=== PATIENT | female | born 1980 | race Caucasian/White ===

== ENCOUNTER 2021-03-19 14:40 | Inpatient (IN) ==
[2021-03-19] MEDS ORDERED: ONDANSETRON INJ 2 MG/ML 2 ML VIAL IV PRN (15:34)
[2021-03-19] MEDS ORDERED: POLYETHYLENE (MIRALAX) 17 GM PACK PO PRN (15:34)
[2021-03-19 20:59] LABS: Basophils # (auto) 0.01 K/uL (0-0.2); Basophils % (auto) 0.1 %; Eosinophils # (auto) 0.03 K/uL (0-0.5); Eosinophils % (auto) 0.2 %; Hematocrit (blood only) 30.9 % (37-47); Hemoglobin 10.2 g/dL (12.0-16.0); Immature Granulocytes # (auto) 0.04 K/uL (0.00-0.02); Immature Granulocytes % (auto) 0.3 %; Lymphocytes # (auto) 1.69 K/uL (1.2-3.4); Lymphocytes % (auto) 12.6 %; Mean Corpuscular Hemoglobin 28.9 pg (25-34); Mean Corpuscular Volume 87.5 fL (80-100); Mean Platelet Volume 9.1 fL (7.4-10.4); Monocytes # (auto) 1.16 K/uL (0.11-0.59); Monocytes % (auto) 8.7 %; Neutrophils # (auto) 10.45 K/uL (1.4-6.5); Neutrophils % (auto) 78.1 %; Platelet Count 395 K/uL (130-400); RDW Coefficient of Variation 14.4 % (11.5-14.5); RDW Standard Deviation 46.4 fL (36.4-46.3); Red Blood Count 3.53 M/uL (4.2-5.4); White Blood Count 13.38 K/uL (4.8-10.8)
[2021-03-19 21:16] LABS: Alanine Aminotransferase 30 U/L (12-78); Albumin Level 2.9 gm/dl (3.4-5.0); Aspartate Aminotransferase 14 U/L (15-37); BUN Creatinine Ratio 17.2 (10-20); Blood Urea Nitrogen 11 mg/dl (7-18); Calcium 8.5 mg/dl (8.5-10.1); Carbon Dioxide 25 mmol/L (21-32); Chloride 102 mmol/L (98-107); Est GFR (African American) 126.3 ml/min; Glucose 98 mg/dl (70-99); Potassium 3.6 mmol/L (3.5-5.1); Sodium 135 mmol/L (136-145)
[2021-03-19 21:20] LABS: Partial Thromboplastin Time 27.1 Seconds (21.0-31.0)
[2021-03-19 21:21] LABS: Albumin Globulin Ratio 0.6 (0.9-2); Alkaline Phosphatase 58 U/L (45-117); Bilirubin,Total 0.2 mg/dl (0.2-1); Globulin 4.5 gm/dl (2.5-4.0); Total Protein 7.4 gm/dl (6.4-8.2); Troponin I < 0.015 ng/ml (0-0.045)
[2021-03-19 21:27] LABS: Magnesium 2.3 mg/dl (1.8-2.4); Thyroid Stimulating Hormone 2.73 uIu/ml (0.300-4.500)
--- NOTE | 2021-03-19 22:14 | History & Physical Report ---
Date of Service March 19, 2021 Assessment & Plan (1) Pericardial effusion: Plan: Need to rule out autoimmune, infectious etiology given low-grade fever Anemia, possibly dilutional after [facility] ER stay. Hypothyroidism, off medications for years now., TSH within normal limits PCU CS Cardiology consult Re: Pericardial effusion Patient already evaluated by Dr. Edwards. He recommends colchicine along with Rheumatology consultation. Anemia work-up, transfuse PRBC if hemoglobin less than 7 and or for symptomatic anemia DVT prophylaxis. SCDs Re: Possible intervention Full code Text document was generated using [employer] voice recognition software. It may contain grammatical or spelling errors. Kindly contact undersigned for clarification of any documentation item in question. Admission and Anticipated Discharge Date Admission Date: March 19, 2021 History of Present Illness Chief Complaint: Pericardial effusion Primary Care Provider: Sheila Swan PA-C History obtained from patient and records. Medical history significant for hypothyroidism currently not on medications. Patient has been experiencing intermittent achy chest pain going to shoulders and neck for about 5 years now. Occurring about 5 times a year with spontaneous resolution. Outpatient TTE and Holter monitor unremarkable. The last 2 weeks, patient noted fever, chills, night sweats. Worsening chest pain with tachycardia episodes. Outpatient COVID-19 test was negative. Some stress at home. Patient seen at local [facility]. T wave inversions noted in the inferior leads along with PVCs. Patient subsequently directed to [facility]. CT chest showed No pulmonary embolism.No focal consolidation/pneumonia.Findings of anasarca, i ncluding pericardial effusion. TTE : EF 55 to 59%, no LV segmental wall motion abnormality. Moderate size 5 to 10 mm circumferential pericardial effusion noted. Fibrin stranding noted within pericardial effusion. Overt signs of tamponade are absent. Lyme screen was negative. Troponin was negative. JOVAN screen was negative CRP elevated at 140. Rheumatoid factor was noted to be slightly elevated at 18. Patient given IV Decadron at the ER which significantly relieve chest discomfort. Initial plan to transfer patient to [facility] for Cardiology services. Patient later accepted as a direct admission at [facility] due to prolonged [facility] bed wait. Patient currently comfortable at PCU room. Complains of minimal epigastric discomfort. Patient denies black/bloody stools. 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 Allergies Allergy/AdvReac Type Severity Reaction Status Date / Time Sulfa (Sulfonamide Allergy Unknown HIVES, rash Verified 03/09/21 20:50 Antibiotics) Home Medications Medication Instructions Recorded Confirmed Type selenium 200 mcg capsule 200 mcg PO DAILY 03/19/21 03/19/21 History tizanidine 4 mg capsule 4 mg PO TID 03/19/21 03/19/21 History valacyclovir 500 mg tablet 500 mg PO BID PRN 03/19/21 03/19/21 History Past Med/Surg History Medical History No pertinent family history No pertinent past medical history Surgical History No pertinent past surgical history Social History Smoking Status: Never smoker Hx Alcohol Use: Yes Alcohol type: wine Hx Substance Use: No Preferred Language: Argentine Communication Ability: Effective 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 Current Living Situation: Spouse and Family Other Information That Helps Us Care for You: No Feels Safe at Home: Yes Safety Concerns: Feels Safe At This Time Assistive Devices: None Review of Systems Review of Systems: As per HPI, all 10 systems reviewed, all other ROS negative Physical Exam Physical Exam: GENERAL: Comfortable, pleasant, no respiratory distress SKIN: Normal color, warm HEENT: Bespectacled, [place] palpebral conjunctivae, no ptosis, moist buccal mucosa NECK : Supple, no tenderness CHEST : CTA, no tenderness HEART : RRR, no obvious murmurs ABDOMEN: Some distention, nontender EXTREMITIES : No LE swelling/tenderness, no other conspicuous deformities noted NEUROLOGIC : Coherent, no facial asymmetry, no other gross focality Results & Data Results & Data ([facility]) Vital Signs (Past 12 Hours) Vital Signs Temp Pulse Resp BP Pulse Ox 03/19/21 21:19 37.6 C H 75 22 122/71 98 Laboratory Results Laboratory Results WBC 13.38 K/uL (4.8-10.8) H 03/19/21 20:46 RBC 3.53 M/uL (4.2-5.4) L 03/19/21 20:46 Hgb 10.2 g/dL (12.0-16.0) L 03/19/21 20:46 Hct 30.9 % (37-47) L 03/19/21 20:46 MCV 87.5 fL (80-100) 03/19/21 20:46 MCH 28.9 pg (25-34) 03/19/21 20:46 MCHC 33.0 g/dL (32-36) 03/19/21 20:46 RDW Std Deviation 46.4 fL (36.4-46.3) H 03/19/21 20:46 RDW Coeff of Agustin 14.4 % (11.5-14.5) 03/19/21 20:46 Plt Count 395 K/uL (130-400) 03/19/21 20:46 MPV 9.1 fL (7.4-10.4) 03/19/21 20:46 Immature Gran % (Auto) 0.3 % 03/19/21 20:46 Neut % (Auto) 78.1 % 03/19/21 20:46 Lymph % (Auto) 12.6 % 03/19/21 20:46 [place]hin % (Auto) 8.7 % 03/19/21 20:46 Eos % (Auto) 0.2 % 03/19/21 20:46 Baso % (Auto) 0.1 % 03/19/21 20:46 Neut # (Auto) 10.45 K/uL (1.4-6.5) H 03/19/21 20:46 Lymph # (Auto) 1.69 K/uL (1.2-3.4) 03/19/21 20:46 [place]hin # (Auto) 1.16 K/uL (0.11-0.59) H 03/19/21 20:46 Eos # (Auto) 0.03 K/uL (0-0.5) 03/19/21 20:46 Baso # (Auto) 0.01 K/uL (0-0.2) 03/19/21 20:46 Immature Gran # (Auto) 0.04 K/uL (0.00-0.02) H 03/19/21 20:46 APTT 27.1 Seconds (21.0-31.0) 03/19/21 20:46 PTT Ratio 1.0 03/19/21 20:46 Sodium 135 mmol/L (136-145) L 03/19/21 20:46 Potassium 3.6 mmol/L (3.5-5.1) 03/19/21 20:46 Chloride 102 mmol/L (98-107) 03/19/21 20:46 Carbon Dioxide 25 mmol/L (21-32) 03/19/21 20:46 Anion Gap 8.0 (3-11) 03/19/21 20:46 BUN 11 mg/dl (7-18) 03/19/21 20:46 Creatinine 0.66 mg/dl (0.6-1.2) 03/19/21 20:46 Est Cr Clr Drug Dosing Not Reportable 03/19/21 20:46 Est GFR ( Amer) 126.3 ml/min 03/19/21 20:46 Est GFR (Non-Af Amer) 109.0 ml/min 03/19/21 20:46 BUN/Creatinine Ratio 17.2 (10-20) 03/19/21 20:46 Glucose 98 mg/dl (70-99) 03/19/21 20:46 Osmolality 285 mOsm/kg (280-300) 03/19/21 20:46 Calcium 8.5 mg/dl (8.5-10.1) 03/19/21 20:46 Magnesium 2.3 mg/dl (1.8-2.4) 03/19/21 20:46 Total Bilirubin 0.2 mg/dl (0.2-1) 03/19/21 20:46 AST 14 U/L (15-37) L 03/19/21 20:46 ALT 30 U/L (12-78) 03/19/21 20:46 Alkaline Phosphatase 58 U/L (45-117) 03/19/21 20:46 Troponin I < 0.015 ng/ml (0-0.045) 03/19/21 20:46 Total Protein 7.4 gm/dl (6.4-8.2) 03/19/21 20:46 Albumin 2.9 gm/dl (3.4-5.0) L 03/19/21 20:46 Globulin 4.5 gm/dl (2.5-4.0) H 03/19/21 20:46 Albumin/Globulin Ratio 0.6 (0.9-2) L 03/19/21 20:46 TSH 2.730 uIu/ml (0.300-4.500) 03/19/21 20:46 Diagnostic Findings EKG as per my read: Rate 75, NSR, normal axis, T wave flattening inferior leads Code Status & VTE Plan VTE Prophylaxis Plan VTE Prophylaxis will be ordered: Yes
--- NOTE | 2021-03-19 23:25 | Cardiology Consultation ---
Date of Consultation March 19, 2021 Assessment & Plan (1) Pericardial effusion: Patient transferred in the setting of new pericardial effusion and possible early tamponade. Clinically on arrival she looks well, hemodynamically stable without evidence of tamponade. Repeat bedside echo shows normal biventricular size and function with only a small to moderate size circumferential pericardial effusion. No echo signs of tamponade. Approach for possible pericardiocentesis limited. No indication for urgent pericardiocentesis currently and with effusion size recommend medical management with close surveillance going forward. With patient's history and inflammatory markers high suspicion effusion related to rheumatologic disease and would consider additional work-up/rheumatology follow-up. With recent fevers also considered viral, less likely tickborne illness. We will repeat limited echo in the morning. Start colchicine 0.6 mg twice daily. If pericardial effusion stable okay with additional outpatient work-up and repeat echo in 1-2 weeks. History of Present Illness Attending Physician: Hermelinda Patel MD History of Present Illness Mrs. Zamorano is a very pleasant 40 year-old woman seen urgently after transferred to [facility] today due to pericardial effusion and concern for early tamponade. Patient endorses long history of episodic severe diffuse chest pain, worse with inspiration radiating to her shoulders. Symptoms have been an issue for maybe the last 4 to 5 years with spells occurring every 1-2 months. With episodes she endorses shortness of breath in part due to inability to take a deep breath due to pain as well as elevated heart rates as high as the 170s. Prior work-up has included unremarkable Holter monitors, prior echocardiogram, prior allergy evaluation and single visit with rheumatology at [place]. No other cardiac history. No prior stress test. 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 2 weeks ago had recurrent chest symptoms along with fever and night sweats. Concern for COVID-19 and presented to [facility] ED. Covid negative ECG, troponin un remarkable and discharged home with suspected viral illness. Continued to have chest pain symptoms that worsened 3 days ago and were associated with presyncope and dyspnea. Initially presented to urgent care and sent to [facility] after reported T wave abnormality on ECG. At [place] high sensitive troponin negative x2. ECG unremarkable. CTA negative for PE but did show a moderate pericardial effusion. Initial labs remarkable for mild hyponatremia (133) anemia (11.4), mildly elevated rheumatoid factor, CRP significantly elevated (140). JOVAN reportedly negative. Echocardiogram today showed EF 55 to 60% with moderate pericardial effusion no echocardiographic signs of tamponade. Was treated with IV fluids, Toradol and Decadron. Currently chest symptoms much improved, breathing comfortably. Family history: Brother underwent CABG at age 54. Another brother with questionable pericardial disease. Mother with A. 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 . Previously served in the . Home schools with 4 kids. Denies tobacco or significant alcohol use. Allergies Allergy/AdvReac Type Severity Reaction Status Date / Time Sulfa (Sulfonamide Allergy Unknown HIVES, rash Verified 03/09/21 20:50 Antibiotics) Home Medications Medication Instructions Recorded Confirmed Type selenium 200 mcg capsule 200 mcg PO DAILY 03/19/21 03/19/21 History tizanidine 4 mg capsule 4 mg PO TID 03/19/21 03/19/21 History valacyclovir 500 mg tablet 500 mg PO BID PRN 03/19/21 03/19/21 History Patient History Medical History No pertinent family history No pertinent past medical history Surgical History No pertinent past surgical history Social History Smoking Status: Never smoker Hx Alcohol Use: Yes Alcohol type: wine Hx Substance Use: No Preferred Language: Turkmen Communication Ability: Effective 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 Current Living Situation: Spouse and Family Other Information That Helps Us Care for You: No Feels Safe at Home: Yes Safety Concerns: Feels Safe At This Time Assistive Devices: Glasses Review of Systems Review of Systems: All systems reviewed & are unremarkable except as noted in HPI & below Physical Exam Physical Exam: General: Comfortable HEENT: Sclerae anicteric, Mask in place Lungs: Clear to auscultation bilaterally, no crackles or wheezes Cardiac: Regular rate and rhythm, no murmurs or rubs. JVP ~8-9 Vascular: 2+ radial, DP pulses. No bruits Abdomen: Soft, nontender Extremities: Well perfused, no peripheral edema Neuro: Nonfocal Psych: Alert orient x3, normal affect and mood Results & Data ([facility]) Vital Signs (Past 12 Hours) Vital Signs Temp Pulse Pulse Resp BP BP Pulse Ox 03/19/21 23:00 98.8 F 85 20 105/54 L 100 03/19/21 22:00 78 21 109/72 99 03/19/21 21:19 99.7 F H 75 22 122/71 98 03/19/21 21:00 79 14 105/64 99 Diagnostic Findings ECG on arrival - sinus rhythm, no ST changes PG Care Time/CCT Total # of Minutes Spent Total Time Spent with Patient: Total time spent is greater than 50% in coordination of care (as documented) at patient's floor/unit and/or counseling patient: Coding Level of Care Code 51300 Inpt Consult Level 5 Diagnoses Pericardial effusion I31.3
[2021-03-20 00:44] LABS: Reticulocytes # 0.04 10^6/uL (0.02-0.10)
[2021-03-20 01:08] LABS: Ferritin 173.3 ng/ml (8-388)
[2021-03-20] MEDS: SIMETHICONE 80 MG CHEW PO PRN ×2 (01:32→05:57)
[2021-03-20 05:52] LABS: Hematocrit (blood only) 30.5 % (37-47); Hemoglobin 10.1 g/dL (12.0-16.0); Mean Corpuscular Hemoglobin 29.2 pg (25-34); Mean Corpuscular Hgb Conc 33.1 g/dL (32-36); Mean Corpuscular Volume 88.2 fL (80-100); Mean Platelet Volume 9.1 fL (7.4-10.4); Platelet Count 386 K/uL (130-400); RDW Coefficient of Variation 14.6 % (11.5-14.5); RDW Standard Deviation 47.5 fL (36.4-46.3); Red Blood Count 3.46 M/uL (4.2-5.4); White Blood Count 9.94 K/uL (4.8-10.8)
[2021-03-20] MEDS: COLCHICINE 0.6 MG TAB PO SCH ×2 (05:56→21:41)
[2021-03-20 06:30] LABS: BUN Creatinine Ratio 15.3 (10-20); Calcium 8.7 mg/dl (8.5-10.1); Creatinine Clr Calc Pharmacy 125.9 ml/min; Est GFR (African American) 126.3 ml/min; Potassium 3.8 mmol/L (3.5-5.1)
[2021-03-20] MEDS: ACETAMINOPHEN 325 MG TAB PO PRN (08:59)
[2021-03-20] MEDS: FERROUS SULFATE 325 MG TAB PO SCH ×2 (08:59→17:10)
--- NOTE | 2021-03-20 09:01 | XCELERA ---
[id number]
--- NOTE | 2021-03-20 09:42 | Cardiology Progress Note ---
Date of Service March 20, 2021 Assessment & Plan (1) Pericardial effusion: Plan: 2. Anemia 3. Elevated inflammatory markers 4. Abdominal pain/tenderness Generally feeling worse this morning with new abd pain/tenderness. Very low suspicion chest/abdominal symptoms secondary to ACS. Reviewed repeat echo - Pericardial effusion is small and no signs of tamponade. Pericardial effusion unlikely to be contributing significantly to current symptoms. No need for pericardiocentesis at this time. Effusion likely secondary to primary issue, possible rheumatologic disease. May have some component of pericarditis and colchicine started this morning. Had overall symptomatic improvement with steroids but not necessary for pericardial disease. Will defer additional GI, rheum work-up to primary team. Will need follow-up echo as an outpatient in 1-2 weeks. Admission and Anticipated Discharge Date Admission Date: March 19, 2021 Subjective Feeling worse this morning. Episode of severe epigastric/abdominal pain. Patient thought maybe related to gas. No relief with simethicone. Tried to adjust position/walk around room which led to recurrent chest pain, shortness of breath, light-headedness. Vitals stable. ECG unchanged. Review of Systems Review of Systems: All systems reviewed & are unremarkable except as noted in HPI & below Physical Exam Physical Exam: General: Comfortable HEENT: Sclerae anicteric, Mask in place Lungs: Clear to auscultation bilaterally, no crackles or wheezes Cardiac: Regular rate and rhythm, no murmurs or rubs. No JVD Abdomen: Soft, tender to palpation over epigastric area Extremities: Well perfused, no peripheral edema Neuro: Nonfocal Psych: Alert orient x3, normal affect and mood Results & Data ([facility]) Vital Signs (Past 12 Hours) Vital Signs Temp Pulse Pulse Resp BP BP Pulse Ox 03/20/21 07:22 97.7 F 70 18 97/57 L 98 03/20/21 05:30 98.6 F 68 18 97/59 L 97 03/20/21 03:12 93 H 20 138/48 L 92 03/20/21 03:00 72 14 97 03/20/21 02:00 75 18 96 03/20/21 01:05 73 16 03/20/21 00:51 82 03/20/21 00:00 87 18 98 03/19/21 23:00 98.8 F 85 20 105/54 L 100 03/19/21 22:00 78 21 109/72 99 PG Care Time/CCT Total # of Minutes Spent Total Time Spent with Patient: Total time spent is greater than 50% in coordination of care (as documented) at patient's floor/unit and/or counseling patient: Coding Level of Care Code 20349 Subseq Hosp Care Lvl 3 Diagnoses Pericardial effusion I31.3
--- NOTE | 2021-03-20 18:22 | Hospitalist Progress Note ---
Date of Service March 20, 2021 Assessment & Plan (1) Pericardial effusion: Plan: unclear etiology echo noted on Colchicine BID appreciate Cardiology service input Anemia, Iron deficiency r/o GI bleed Iron level 18 monitor Hg Protonix IV BID, Sucralfate started CT abd/pelvis: pending NPO after midnight GI consulted Hypothyroidism, off medications for years now., TSH within normal limits DVT prophylaxis. SCDs Re: Possible intervention Full code Admission and Anticipated Discharge Date Admission Date: March 19, 2021 Subjective ff up for pericardial effusion, etc seen sitting up in bed, not in distress somewhat uncomfortable mainly due to epigastric pain no nausea/vomiting does not notice black/bloody stools had chest pain earlier today with ambulation associated with dizziness no other symptoms Review of Systems Review of Systems: all noted and negative except for above Physical Exam Physical Exam: General- oriented x 3, not in distress, speaks in sentences with no effort or accessory muscle use Eyes- anicteric Neck- no JVD Lungs- clear breath sounds bilaterally, no rales/wheezes Heart- normal rate, regular rhythm; no murmurs Abdomen- normal bowel sounds, nondistended, soft, (+) moderate tenderness on the epigastric area Extremities- no pretibial edema, no calf tenderness Neuro- alert, oriented x 3; no gross focal neurologic deficits Skin- warm & dry Results & Data Results & Data ([facility]) Vital Signs (Past 12 Hours) Vital Signs Temp Pulse Pulse Resp BP Pulse Ox 03/20/21 16:00 36.7 C 71 71 18 103/57 L 98 03/20/21 11:00 36.6 C 83 18 105/64 99 03/20/21 10:40 79 03/20/21 07:22 36.5 C 70 18 97/57 L 98 all noted and reviewed including below
--- NOTE | 2021-03-20 19:24 | Rheumatology Consultation ---
Rheumatology Consultation DOS March 20, 2021 Reason for Consultation Concern for autoimmune driven pericarditis Assessment & Plan (1) Pericardial effusion: Concern that it could be due to autoimmune process given elevated crp and low titer rheumatoid factor. This would be an atypical presentation of RA. Higher on the differential with be lupus but her JOVAN has been negative x 3. She notes that she was more pain free when she received Decadron and is having ongoing pain on colchicine in addition to epigastric discomfort. --consider treating her acute pericarditis with corticosteroids instead (2) Rheumatoid factor positive: -clinical significance unclear. Would like to complete her autoimmune workup to get a better picture of the cause of her pericarditis and frequent "flare-ups". Of note her rheumatoid factor was negative in November of 2019 and her inflammatory markers normal at that time. --please consider checking anti-CCP, ANCA, SSA, SSB, C3, C4, cardiolipin antibody panel, beta-2 glycoprotein antibody panel, lupus anticoagulant, and SLICK-1. Happy to see her as an outpatient in 2 week post discharge as a return patient. History of Present Illness Attending Physician: Sha Mishra MD History of Present Illness 40 year old woman who was admitted yesterday after workup for chest pain done at [facility] on 03/18/21 revealed pericardial effusion, elevated d- dimer and concern for cardiac tamponade. History is obtained from the patient, her and review of both [facility] and [employer]. She reports that this episode of chest pain began on 03/03/21. She reports that since 2011 she has been experiencing flare ups that begin with sternal chest pain that quickly radiates to involve her entire chest. Deep breathing will then often result in stabbing/shooting pain that radiates to her right shoulder > left shoulder. Pain will then progress to involve her jaw and often wrap up the back of her head and upper back. Her chest and neck will feel tight. Pain can be so severe that it impacts her daily activities. These flare ups will often last 2 weeks. Would often have 4-5 flare ups a year. Has undergone cardiac workup over the years for her symptoms and nothing abnormal would be noted. She does not like to take medications but would take ibuprofen when the pain was severe. They could not determine any trigger and underwent work including testing for food allergies which only noted that she was allergic to milk, eggs, and almonds. However changing her diet never prevented or treated these flare ups. With this most recent flare her pain progressively got worse and she would sleep on their lazy boy as she could not lay flat. She noted dyspnea on exertion. On 03/07/21, she developed drenching night sweats. She called her job and requested testing for COVID which came back negative on 03/09/21. Also on 03/09/21 she presented to [facility] Emergency room complaining of chest pain, lightheadedness and shortness of breath. She noted that her pulse at home was 90s-178 and took some time to trend down. She had a normal CXR and viral panel was negative. She received a liter of IV fluids and was noted to have low sodium. On 03/16/21 her pain got worse to the point that both shoulders, neck, and chest wall were painful and she could not take deep breaths. Pain was not responding to Tylneol, ibuprofen, or heating pads. On Thursday03/18/21 she felt more dizzy and short of breath. She developed ringing in her left ear so she presented to [facility] Urgent care. She had an EKG done that showed some T-wave abnormality so she was advised to go to the emergency room. She was initially going to be discharged on some prednisone but after the EKG abnormality was noted she was advised to go to the ED. Her labs was notable for CRP 140, RF 18, normal troponin, negative COVID, mild normocytic anemia, normal LFTs, d-dimer 3.[address] scan showing pericardial effusion and no PE. Echo done 03/19 showed pericardial effusion. She reports receiving one dose of decadron that took all her pain away. Reports rare episodes of random joint pains feeling as if her foot or hand is broken. These episodes do not correlate with her chest pain flare ups. She has never noticed any joint swelling. No history of rashes with the episodes of joint pain. Reports longstanding history of cold hands with color changes to white and purple. No history of skin ulcers. Denies dry eyes, dry mouth, mouth sores, nasal ulcers, fevers, unintentional weight loss, inflammatory eye or inflammatory bowel issues. Family history notable only for gout, breast cancer and maternal grandmother who had arthritis and several joint replacements. She has been 6 times and had 1 still at 36 weeks, 1 miscarriage at 40 days, and 4 term pregnancies with no complications. Allergies Allergy/AdvReac Type Severity Reaction Status Date / Time Sulfa (Sulfonamide Allergy Unknown HIVES, rash Verified 03/09/21 20:50 Antibiotics) Home Medications Medication Instructions Recorded Confirmed Type selenium 200 mcg capsule 200 mcg PO DAILY 03/19/21 03/19/21 History tizanidine 4 mg capsule 4 mg PO TID 03/19/21 03/19/21 History valacyclovir 500 mg tablet 500 mg PO BID PRN 03/19/21 03/19/21 History Patient History Medical History No pertinent family history No pertinent past medical history Surgical History No pertinent past surgical history Social History Smoking Status: Never smoker Hx Alcohol Use: Yes Alcohol type: wine Hx Substance Use: No Preferred Language: Bolivian Communication Ability: Effective Arabic Translator Required: No Beliefs That Will Affect Care: Yazidi Yazidi Beliefs: Spiritism. Current Living Situation: Spouse and Family Other Information That Helps Us Care for You: No Feels Safe at Home: Yes Safety Concerns: Feels Safe At This Time Assistive Devices: None Review of Systems Review of Systems: As per HPI Physical Exam Physical Exam: Gen: sitting up in bed appearing uncomfortable as she often would push on her chest and epigastric region HEENT: normocephalic, atraumatic, no scleral icterus, oropharynx clear, moist mucus membranes, no alopecia Neck: supple without lymphadenopathy CV: regular rate and rhythm, no murmurs or rubs noted Resp: clear to ascultation Abdomen: soft, epigastric tenderness Skin: no rashes, varicose veins left lower leg MSK: chest wall tenderness, good range of motio of the shoulders without te nderness. No joint swelling or effusion Neuro: alert, oriented, moves all extremities Results & Data ([facility]) Vital Signs (Past 12 Hours) Vital Signs Temp Pulse Pulse Resp BP Pulse Ox 03/20/21 16:00 36.7 C 71 71 18 103/57 L 98 03/20/21 11:00 36.6 C 83 18 105/64 99 11/24/21 10:40 79 03/20/21 07:22 36.5 C 70 18 97/57 L 98 Laboratory Results Labs from [facility]: Component Latest Ref Rng & Units 03/18/2021 03/18/2021 03/18/2021 3:13 PM 3:47 PM 7:00 PM Troponin T, High Sensitivity <=14 ng/L <6 8 D-Dimer <0.50 ug/mL FEU 3.77 (H) CRP (Inflammatory Marker) <=5 mg/L 140 (H) Rheumatoid Factor <14 IU/mL 18 (H) JOVAN Antibody Screen, ELLIOTT Negative Negative
[2021-03-20] MEDS: NSS + 20MEQ KCL 20 MEQ/1,000 ML BAG IV SCH (19:30)
[2021-03-20] MEDS ORDERED: MoRPHine SULFATE 4 MG/ML 1 ML CARP\\VIAL IV STA (21:32)
[2021-03-20] MEDS: SUCRALFATE 1 GM/10 ML UDC PO SCH (21:41)
[2021-03-20] MEDS: PANTOprazole 40 MG in SYRINGE 0 ML IV SCH (21:42)
[2021-03-21] MEDS ORDERED: KETOROLAC TROMETHAMINE 15 MG/ML VIAL IV ONE (00:08)
[2021-03-21] MEDS: NSS + 20MEQ KCL 20 MEQ/1,000 ML BAG IV SCH ×2 (03:45→12:21)
[2021-03-21] MEDS ORDERED: KETOROLAC TROMETHAMINE 15 MG/ML VIAL ONE (03:49)
--- NOTE | 2021-03-21 06:22 | Electrocardiogram Report ---
Test Reason : Blood Pressure : / mmHG Vent. Rate : 073 BPM Atrial Rate : 073 BPM P-R Int : 136 ms QRS Dur : 096 ms QT Int : 414 ms P-R-T Axes : 062 085 035 degrees QTc Int : 456 ms Normal sinus rhythm Normal ECG When compared with ECG of 09-MAR-2021 19:39, No significant change was found Confirmed by Trey Reich ([id number]) on 03/21/2021 6:21:37 AM Referred By: Viviane Patel Confirmed By:Trey Reich
[2021-03-21 06:29] LABS: Ferritin 168.4 ng/ml (8-388)
--- NOTE | 2021-03-21 07:33 | CT Scan Report ---
CT OF THE ABDOMEN AND PELVIS WITHOUT CONTRAST CLINICAL HISTORY: abdominal pain, possible gastric ulcer COMPARISON STUDY: MRI of the pelvis December 08, 2013. TECHNIQUE: Axial images of the abdomen and pelvis were obtained without IV contrast. Images were revi ewed in the axial, sagittal, and coronal planes. Automated exposure control was utilized for the bo dy. A dose lowering technique was utilized adhering to the principles of ALARA. FINDINGS: Visualized portions of the lower chest demonstrated a [id number] pericardial effusio n. Decreased attenuation of the cardiac blood pool is noted. Small left and trace right pleural effus ions are noted. Associated airspace opacities represent atelectasis. No pneumatosis, free air or portal venous gas is present. Evaluation of the abdomen and pelvis is sub optimal on this unenhanced exam. Unenhanced images of the liver, spleen, adrenal glands, kidneys and pancreas are unremarkable. There is no biliary or pancreatic ductal dilatation. There may be mild gal lbladder wall thickening, a nonspecific finding. The gallbladder is not distended. There is no convin cing evidence for acute cholecystitis. Stomach is suboptimally assessed by CT but no adjacent abnorma lity is identified. There is no evidence for a bowel obstruction. The appendix is normal. There is a 2.4 cm cyst or dominant follicle within the right ovary. A small amount of fluid within the pelvis is noted. There is no lymphadenopathy. No acute fracture or suspicious lesion is identified within visu alized skeletal structures. IMPRESSION: 1. Small to moderate pericardial effusion. Decreased attenuation of the cardiac blood flow which may indicate anemia. 2. Small left and trace right pleural effusions. 3. No pneumoperitoneum. Suboptimal evaluation of the stomach given CT technique but no adjacent abnor mality. 4. Mild gallbladder wall thickening, a nonspecific finding. No gallbladder distention. No convincing evidence for acute cholecystitis. 5. Small amount of fluid within the pelvis. ACT 112: Negative or not required by law. Electronically signed by: Aeljandro Yang M.D. 03/21/2021 7:32 AM
[2021-03-21] MEDS: FERROUS SULFATE 325 MG TAB PO SCH ×2 (09:19→18:39)
[2021-03-21] MEDS: PANTOprazole 40 MG in SYRINGE 0 ML IV SCH ×2 (09:20→20:36)
[2021-03-21] MEDS: SUCRALFATE 1 GM/10 ML UDC PO SCH ×4 (09:20→20:36)
[2021-03-21] MEDS: COLCHICINE 0.6 MG TAB PO SCH ×2 (09:20→20:36)
[2021-03-21 09:38] LABS: Basophils # (auto) 0.03 K/uL (0-0.2); Basophils % (auto) 0.3 %; Eosinophils # (auto) 0.03 K/uL (0-0.5); Eosinophils % (auto) 0.3 %; Hemoglobin 10.4 g/dL (12.0-16.0); Immature Granulocytes # (auto) 0.02 K/uL (0.00-0.02); Immature Granulocytes % (auto) 0.2 %; Lymphocytes # (auto) 1.79 K/uL (1.2-3.4); Lymphocytes % (auto) 18.8 %; Mean Corpuscular Hemoglobin 28.8 pg (25-34); Mean Corpuscular Hgb Conc 32.5 g/dL (32-36); Mean Corpuscular Volume 88.6 fL (80-100); Mean Platelet Volume 9.1 fL (7.4-10.4); Monocytes # (auto) 0.89 K/uL (0.11-0.59); Monocytes % (auto) 9.3 %; Neutrophils # (auto) 6.76 K/uL (1.4-6.5); Neutrophils % (auto) 71.1 %; Platelet Count 445 K/uL (130-400); RDW Coefficient of Variation 14.7 % (11.5-14.5); RDW Standard Deviation 48.2 fL (36.4-46.3); Red Blood Count 3.61 M/uL (4.2-5.4); White Blood Count 9.52 K/uL (4.8-10.8)
[2021-03-21 10:01] LABS: Albumin Level 2.9 gm/dl (3.4-5.0); BUN Creatinine Ratio 12.7 (10-20); Calcium 8.9 mg/dl (8.5-10.1); Creatinine Clr Calc Pharmacy 125.9 ml/min; Est GFR (African American) 126.3 ml/min; Potassium 3.8 mmol/L (3.5-5.1)
[2021-03-21 10:04] LABS: Albumin Globulin Ratio 0.7 (0.9-2); Bilirubin,Total 0.5 mg/dl (0.2-1); Globulin 4.4 gm/dl (2.5-4.0); Total Protein 7.3 gm/dl (6.4-8.2)
[2021-03-21] MEDS ORDERED: IRON SUCROSE 150 MG in SODIUM CHLORIDE 0.9% 250 ML IV ONE (10:15)
--- NOTE | 2021-03-21 12:48 | Hospitalist Progress Note ---
Date of Service March 21, 2021 delayed entry date of service noted above Assessment & Plan (1) Pericardial effusion: Plan: unclear etiology echo: small circumferential pericardial effusion with no tamponade, unchanged from 03/19/21 placed on Colchicine BID pain level about the same awaiting cardiology re: prednisone evaluated by Rheumatology as well, Dr. Tang autoimmune serologic panel: pending Anemia, Iron deficiency from Menorrhagia? Iron level 18 Hg stable at ~10 Protonix IV BID, Sucralfate started CT abd/pelvis: unrevealing fecal occult blood negative Protonix 40mg BID, Sucralfate Hypothyroidism, off medications for years now., TSH within normal limits DVT prophylaxis. SCDs Re: Possible intervention Full code Admission and Anticipated Discharge Date Admission Date: March 19, 2021 Subjective ff up for pericardial effusion, etc seen resting in bed, comfortable states chest discomfort mostly about the same as yesterday no dyspnea, palpitations, dizziness abdominal pain improving no other symptoms Review of Systems Review of Systems: all noted and negative except for above Physical Exam Physical Exam: General- oriented x 3, not in distress, speaks in sentences with no effort or accessory muscle use Eyes- anicteric Neck- no JVD Lungs- clear BS BL Heart- normal rate, regular rhythm; no murmurs Abdomen- normal bowel sounds, nondistended, soft, nontender Extremities- no pretibial edema, no calf tenderness Neuro- alert, oriented x 3; no gross focal neurologic deficits Skin- warm & dry Results & Data Results & Data ([facility]) Vital Signs (Past 12 Hours) Vital Signs Temp Pulse Resp BP Pulse Ox 03/21/21 09:28 37.6 C H 85 26 H 102/67 97 03/21/21 04:00 37.2 C 93 H 19 115/69 97 all noted and reviewed including below
[2021-03-22] MEDS: ACETAMINOPHEN 325 MG TAB PO PRN ×2 (00:58→05:40)
[2021-03-22] MEDS: NSS + 20MEQ KCL 20 MEQ/1,000 ML BAG IV SCH ×2 (05:35→13:06)
[2021-03-22 05:44] LABS: Basophils # (auto) 0.02 K/uL (0-0.2); Basophils % (auto) 0.2 %; Eosinophils # (auto) 0.06 K/uL (0-0.5); Eosinophils % (auto) 0.7 %; Hematocrit (blood only) 30.2 % (37-47); Hemoglobin 9.7 g/dL (12.0-16.0); Immature Granulocytes # (auto) 0.02 K/uL (0.00-0.02); Immature Granulocytes % (auto) 0.2 %; Lymphocytes % (auto) 22.5 %; Mean Corpuscular Hemoglobin 28.5 pg (25-34); Mean Corpuscular Hgb Conc 32.1 g/dL (32-36); Mean Corpuscular Volume 88.8 fL (80-100); Mean Platelet Volume 8.9 fL (7.4-10.4); Monocytes # (auto) 0.81 K/uL (0.11-0.59); Monocytes % (auto) 9.6 %; Neutrophils # (auto) 5.64 K/uL (1.4-6.5); Neutrophils % (auto) 66.8 %; Platelet Count 407 K/uL (130-400); RDW Coefficient of Variation 14.7 % (11.5-14.5); White Blood Count 8.45 K/uL (4.8-10.8)
[2021-03-22 06:18] LABS: BUN Creatinine Ratio 13.9 (10-20); Calcium 8.7 mg/dl (8.5-10.1); Creatinine Clr Calc Pharmacy 145.7 ml/min; Est GFR (African American) 132.5 ml/min; Est GFR (Non-African American) 114.3 ml/min; Potassium 3.6 mmol/L (3.5-5.1)
--- NOTE | 2021-03-22 07:36 | Electrocardiogram Report ---
Test Reason : Blood Pressure : / mmHG Vent. Rate : 073 BPM Atrial Rate : 073 BPM P-R Int : 132 ms QRS Dur : 096 ms QT Int : 392 ms P-R-T Axes : 061 080 027 degrees QTc Int : 431 ms Normal sinus rhythm Normal ECG When compared with ECG of 19-MAR-2021 21:12, No significant change was found Confirmed by Suresh Martínez ([id number]) on 03/22/2021 7:36:28 AM Referred By: Viviane Patel Confirmed By:Jonathon Martínez
[2021-03-22] MEDS: FERROUS SULFATE 325 MG TAB PO SCH ×2 (10:07→18:04)
[2021-03-22] MEDS: SUCRALFATE 1 GM/10 ML UDC PO SCH ×4 (10:08→20:48)
[2021-03-22] MEDS: PANTOprazole 40 MG in SYRINGE 0 ML IV SCH ×2 (10:08→20:47)
[2021-03-22] MEDS: COLCHICINE 0.6 MG TAB PO SCH ×2 (10:08→20:48)
[2021-03-22] MEDS ORDERED: predniSONE 20 MG TAB PO SCH (10:45)
[2021-03-22] MEDS ORDERED: KETOROLAC 30 MG/ML VIAL IV ONE (12:52)
[2021-03-22] MEDS: IBUPROFEN 600 MG TAB PO SCH ×2 (13:06→20:47)
--- NOTE | 2021-03-22 13:08 | Gastrointestinal Consultation ---
Date of Consultation March 22, 2021 Assessment & Plan (1) Anemia: Pt is a40 yo female admitted with pericardial effusion, seen for anemia, epigastric pain. No acute findings on CT abd/pelvis. She denies stanford s/s of GI bleeding. Currently on her menstrual cycle and reports maternal family does have known hx of anemia - Diet as tolerated - PPI daily - Outpt GI follow up to discuss indication for OP EGD/Colonoscopy for anemia eval. Pt prefers to f/u with [facility] in [place] - Consider Hematology eval for anemia workup as well - GI to sign off; pls recall prn Supervising Physician Co-Signing Physician Notes I have personally seen and examined the patient with SHAKEEL De La O. Her note reflects my exam and findings. I agree with her impression and plan. Out patient f/u to discuss need for further work up of anemia. Ambrosio Potts M.D. History of Present Illness Reason for Consultation: Iron deficiency anemia, epigastric pain Requesting Physician: Dr. Sha Mishra Attending Physician: Dr. Ambrosio Potts History of Present Illness Pt is a 40 yo female currently admitted with pericardial effusion ? viral vs autoimmune related. GI consulted as she's noted to be anemic w Hgb of 9s. She has known hx of anemia, and reports her mother's family has hx of this as well. She is currently on her menstrual cycle. She did have mid upper abd pain but no n/v, changes in bowel habit nor dark tarry stools, rectal bleeding. CT abd/pelvis wo acute findings. 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 Last colonoscopy in 2009 w signs of lymphocytic colitis Allergies Allergy/AdvReac Type Severity Reaction Status Date / Time Sulfa (Sulfonamide Allergy Unknown HIVES, rash Verified 03/09/21 20:50 Antibiotics) Home Medications Medication Instructions Recorded Confirmed Type selenium 200 mcg capsule 200 mcg PO DAILY 03/19/21 03/19/21 History tizanidine 4 mg capsule 4 mg PO TID 03/19/21 03/19/21 History valacyclovir 500 mg tablet 500 mg PO BID PRN 03/19/21 03/19/21 History Patient History Medical History No pertinent family history No pertinent past medical history Surgical History No pertinent past surgical history Social History Smoking Status: Never smoker Hx Alcohol Use: Yes Alcohol type: wine Hx Substance Use: No Preferred Language: Turkmen Communication Ability: Effective Newspaper Journalist Required: No Beliefs That Will Affect Care: Yazidi Yazidi Beliefs: Christian. Current Living Situation: Spouse and Family Other Information That Helps Us Care for You: No Feels Safe at Home: Yes Safety Concerns: Feels Safe At This Time Assistive Devices: None Review of Systems Review of Systems: All systems reviewed & are unremarkable except as noted in HPI & below Physical Exam Constitutional: WD/WN, vitals as above well groomed, cooperative and comfortable Eyes: PERRL, conjunctivae normal, anicteric sclerae ENMT: external ear and nose normal, oropharynx normal Respiratory: normal respiratory effort, lungs clear to auscultation Cardiovascular: RRR, no murmur, no edema Gastrointestinal (Abdomen): normal bowel sounds, soft, nontender, no hepatosplenomegaly Skin: no rashes, warm and dry no jaundice Psychiatric: A+Ox3, euthymic affect Lymphatic: no lymphedema Results & Data ([facility]) Vital Signs (Past 12 Hours) Vital Signs Temp Pulse Resp BP BP Pulse Ox 03/22/21 08:00 37.3 C 77 20 116/76 97 03/22/21 03:26 37 C 66 16 99/67 L 98
--- NOTE | 2021-03-22 13:44 | Cardiology Progress Note ---
Date of Service March 22, 2021 Assessment & Plan (1) Pericardial effusion: Plan: 1. Pericarditis: Her symptoms and elevated inflammatory markers as well as the presence of pericardial effusion all suggest pericarditis. There has been some debate as to the true etiology. There was some concern that this may be a manifestation of a systemic inflammatory process. She has not gotten relief with the current treatment but this has been limited to colchicine exclusively. She did report relieved both with administration of Toradol previously and steroids. I think a trial of nonsteroidal medications would be reasonable prior to initiation of prednisone. It does not sound as if there is a definite connective tissue disorder. Recurrence rates of pericarditis in the setting of steroid use are higher. I will prescribe her some Toradol and ibuprofen to see if this improves her symptoms. In the absence of improvement we can consider more aggressive treatment with steroids. She continues to be hemodynamically stable. No tachycardia or hypotension. Admission and Anticipated Discharge Date Admission Date: March 19, 2021 Subjective This afternoon the patient continues to have symptoms of chest discomfort. This is moderate in intensity. It is present nearly all of the time and worse with deep inspiration. Some radiation into the shoulders back and neck. She has been receiving colchicine without significant relief. Review of Systems Review of Systems: Per HPI. Physical Exam Physical Exam: She is alert and oriented x3. Mood affect appear normal. She answered all questions appropriately. HEENT: Sclerae are anicteric. Pupils are equal and reactive to light and accommodation. Extraocular movements were intact. Neuro: Cranial nerves intactd. Lungs: Lungs are clear to auscultation bilaterally. There are no rales wheezes or rhonchi. She has normal respiratory effort without use of accessory muscles. There is normal pulmonary excursion. Cardiac: The rhythm was regular. S1 and S2 were normal. There are no murmurs on examination. No rubs. The PMI was not markedly displaced on palpation. Extremities: Patient has bilateral radial pulses that are equal in intensity. There is no evidence cyanosis or clubbing. Skin: There are no rashes noted on examination today. Results & Data ([facility]) Vital Signs (Past 12 Hours) Vital Signs Temp Pulse Resp BP BP Pulse Ox 03/22/21 08:00 37.3 C 77 20 116/76 97 03/22/21 03:26 37 C 66 16 99/67 L 98 Laboratory Results Abnormal Lab Results 03/22/21 03/22/21 05:18 05:18 WBC 8.45 RBC 3.40 L Hgb 9.7 L Hct 30.2 L MCV 88.8 MCH 28.5 MCHC 32.1 RDW Std Deviation 48.0 H RDW Coeff of Agustin 14.7 H Plt Count 407 H MPV 8.9 Immature Gran % (Auto) 0.2 Neut % (Auto) 66.8 Lymph % (Auto) 22.5 Summers % (Auto) 9.6 Eos % (Auto) 0.7 Baso % (Auto) 0.2 Neut # (Auto) 5.64 Lymph # (Auto) 1.90 Summers # (Auto) 0.81 H Eos # (Auto) 0.06 Baso # (Auto) 0.02 Immature Gran # (Auto) 0.02 Sodium 138 Potassium 3.6 Chloride 107 Carbon Dioxide 26 Anion Gap 5.0 BUN 8 Creatinine 0.57 L Est Cr Clr Drug Dosing 145.7 Est GFR ( Amer) 132.5 Est GFR (Non-Af Amer) 114.3 BUN/Creatinine Ratio 13.9 Glucose 86 Calcium 8.7 PG Care Time/CCT Total # of Minutes Spent Total Time Spent with Patient: Total time spent is greater than 50% in coordination of care (as documented) at patient's floor/unit and/or counseling patient: Coding Level of Care Code 97147 Subseq Hosp Care Lvl 2 Diagnoses Pericardial effusion I31.3
--- NOTE | 2021-03-22 19:34 | Hospitalist Progress Note ---
Date of Service March 22, 2021 Assessment & Plan (1) Pericardial effusion: Plan: unclear etiology echo noted on Colchicine BID appreciate Cardiology service input evaluated by Rheumatology serologic markers ordered: pending discussed with Dr. Martínez- will add Ibuprofen TID monitor Anemia, Iron deficiency Iron level 18 Hg stable Protonix IV BID, Sucralfate started CT abd/pelvis: unrevealing GI consulted- no scopes planned IV iron given, will need PO Fe will need Gyne ff up on discharge Hypothyroidism, off medications for years now., TSH within normal limits DVT prophylaxis. SCDs Re: Possible intervention Full code Admission and Anticipated Discharge Date Admission Date: March 19, 2021 Subjective ff up for pericardial effusion, etc seen resting in bedside chair, not in distress chest discomfort about the same no dyspnea, dizziness no abdominal pain ,nausea, melena no other symptoms Review of Systems Review of Systems: all noted and negative except for above Physical Exam Physical Exam: General- oriented x 3, not in distress, speaks in sentences with no effort or accessory muscle use Eyes- anicteric Neck- no JVD Lungs- clear BS BL Heart- normal rate, regular rhythm; no murmurs Abdomen- normal bowel sounds, nondistended, soft, nontender Extremities- no pretibial edema, no calf tenderness Neuro- alert, oriented x 3; no gross focal neurologic deficits Skin- warm & dry Results & Data Results & Data ([facility]) Vital Signs (Past 12 Hours) Vital Signs Temp Pulse Resp BP Pulse Ox 03/22/21 15:48 36.7 C 96 H 18 107/75 99 03/22/21 08:00 37.3 C 77 20 116/76 97 all noted and reviewed including below
[2021-03-23] MEDS: NSS + 20MEQ KCL 20 MEQ/1,000 ML BAG IV SCH (02:18)
[2021-03-23 05:54] LABS: Basophils # (auto) 0.02 K/uL (0-0.2); Basophils % (auto) 0.3 %; Eosinophils # (auto) 0.19 K/uL (0-0.5); Eosinophils % (auto) 2.4 %; Hematocrit (blood only) 30.8 % (37-47); Hemoglobin 10.2 g/dL (12.0-16.0); Immature Granulocytes # (auto) 0.03 K/uL (0.00-0.02); Immature Granulocytes % (auto) 0.4 %; Lymphocytes # (auto) 1.54 K/uL (1.2-3.4); Lymphocytes % (auto) 19.8 %; Mean Corpuscular Hemoglobin 29.2 pg (25-34); Mean Corpuscular Hgb Conc 33.1 g/dL (32-36); Mean Corpuscular Volume 88.3 fL (80-100); Mean Platelet Volume 8.9 fL (7.4-10.4); Monocytes # (auto) 0.76 K/uL (0.11-0.59); Monocytes % (auto) 9.8 %; Neutrophils # (auto) 5.22 K/uL (1.4-6.5); Neutrophils % (auto) 67.3 %; Platelet Count 422 K/uL (130-400); RDW Coefficient of Variation 14.5 % (11.5-14.5); RDW Standard Deviation 46.8 fL (36.4-46.3); Red Blood Count 3.49 M/uL (4.2-5.4); White Blood Count 7.76 K/uL (4.8-10.8)
[2021-03-23] MEDS: IBUPROFEN 600 MG TAB PO SCH ×2 (06:19→12:15)
[2021-03-23 06:27] LABS: BUN Creatinine Ratio 10.2 (10-20); Creatinine Clr Calc Pharmacy 135.7 ml/min; Est GFR (African American) 129.6 ml/min; Est GFR (Non-African American) 111.8 ml/min; Potassium 3.8 mmol/L (3.5-5.1)
[2021-03-23] MEDS: SUCRALFATE 1 GM/10 ML UDC PO SCH ×2 (08:07→12:15)
[2021-03-23] MEDS: FERROUS SULFATE 325 MG TAB PO SCH (08:07)
[2021-03-23] MEDS: PANTOprazole 40 MG in SYRINGE 0 ML IV SCH (08:07)
[2021-03-23] MEDS: COLCHICINE 0.6 MG TAB PO SCH (08:07)
--- NOTE | 2021-03-23 10:06 | Cardiology Progress Note ---
Date of Service March 23, 2021 Assessment & Plan (1) Pericardial effusion: Plan: 1. Pericarditis: Much improved this morning. Symptoms nearly resolved. If she is ambulatory in feeling well, I think she could be safely discharged with outpatient follow-up. I would recommend continued ibuprofen 600 mg 3 times daily and follow-up in 1 week. At that point if her inflammatory markers are normal in her symptoms are resolved the dose could be reduced. She should continue her current dose of colchicine for 3 months. She should have a follow- up echocardiogram in the next 2-4 weeks for evaluation of the pericardial effusion. Admission and Anticipated Discharge Date Admission Date: March 19, 2021 Subjective This morning the patient feels better. No discomfort at rest. With deep inspiration some mild discomfort across the upper shoulders and chest. She has been ambulatory with some mild dizziness. No stomach upset Review of Systems Review of Systems: Per HPI Physical Exam Physical Exam: She is alert and oriented x3. Mood affect appear normal. She answered all questions appropriately. HEENT: Sclerae are anicteric. Pupils are equal and reactive to light and accommodation. Extraocular movements were intact. Neuro: Cranial nerves intactd. Lungs: Lungs are clear to auscultation bilaterally. There are no rales wheezes or rhonchi. She has normal respiratory effort without use of accessory muscles. There is normal pulmonary excursion. Cardiac: The rhythm was regular. S1 and S2 were normal. There are no murmurs on examination. No rubs. The PMI was not markedly displaced on palpation. Extremities: Patient has bilateral radial pulses that are equal in intensity. There is no evidence cyanosis or clubbing. Skin: There are no rashes noted on examination today. Results & Data ([facility]) Vital Signs (Past 12 Hours) Vital Signs Temp Pulse Resp BP Pulse Ox 03/23/21 03:02 37.1 C 70 15 99/67 L 99 03/22/21 23:09 36.9 C 79 18 105/71 100 Laboratory Results Abnormal Lab Results 03/23/21 03/23/21 05:33 05:33 WBC 7.76 RBC 3.49 L Hgb 10.2 L Hct 30.8 L MCV 88.3 MCH 29.2 MCHC 33.1 RDW Std Deviation 46.8 H RDW Coeff of Agustin 14.5 Plt Count 422 H MPV 8.9 Immature Gran % (Auto) 0.4 Neut % (Auto) 67.3 Lymph % (Auto) 19.8 Bond % (Auto) 9.8 Eos % (Auto) 2.4 Baso % (Auto) 0.3 Neut # (Auto) 5.22 Lymph # (Auto) 1.54 Bond # (Auto) 0.76 H Eos # (Auto) 0.19 Baso # (Auto) 0.02 Immature Gran # (Auto) 0.03 H Sodium 138 Potassium 3.8 Chloride 106 Carbon Dioxide 29 Anion Gap 3.0 BUN 6 L Creatinine 0.61 Est Cr Clr Drug Dosing 135.7 Est GFR ( Amer) 129.6 Est GFR (Non-Af Amer) 111.8 BUN/Creatinine Ratio 10.2 Glucose 94 Calcium 9.0 PG Care Time/CCT Total # of Minutes Spent Total Time Spent with Patient: Total time spent is greater than 50% in coordination of care (as documented) at patient's floor/unit and/or counseling patient: Coding Level of Care Code 07523 Subseq Hosp Care Lvl 2 Diagnoses Pericardial effusion I31.3
[2021-03-23 11:31] VITALS: PULSE 73; TEMP 98.4; O2SAT 100
--- NOTE | 2021-03-23 15:24 | Hospitalist Progress Note ---
Date of Service March 23, 2021 Assessment & Plan (1) Pericardial effusion: Plan: unclear etiology echo: small circumferential pericardial effusion with no tamponade, unchanged from 03/19/[address] Edwards and Dr. Martínez consulted placed on Colchicine BID Ibuprofen 800mg TID added for better control of pain pain improved gradually cleared for [place] by [place] [facility] [place] plan: Colchicine 0.3mg BID x 3 months Ibuprofen 800mg TID x 1 week, if symptoms improve and inflammatory markers are normal, may taper Ibuprofen ff up with [facility] [place] Cardiology in 2 weeks repeat Echo in 2 weeks evaluated by Rheumatology as well, Dr. Tang autoimmune serologic panel: pending ff up with Dr. Tang in 2 weeks Anemia, Iron deficiency from Menorrhagia? Iron level 18 Hg stable at ~10 Protonix IV BID, Sucralfate started CT abd/pelvis: unrevealing fecal occult blood negative GI consulted- no scopes planned at this point IV iron given FESo4 BID, Protonix 40mg daily closely monitor CBC and Fe as outpatient patient reports heavy menses please refer to [employer] as well Hypothyroidism, off medications for years now., TSH within normal limits DVT prophylaxis. SCDs Re: Possible intervention Full code plan of care discussed with patient and her in detail and at length all questions answered they are understanding, agreeable, comfortable with the plan of care Admission and Anticipated Discharge Date Admission Date: March 19, 2021 Subjective ff up for pericardial effusion, etc seen sitting up in chair, comfortable in good spirits states she feels much better pain none to mild no dizziness, dyspnea no abdominal pain, nausea, melena no other symptoms states she is ready for discharge today Review of Systems Review of Systems: all noted and negative except for above Physical Exam Physical Exam: General- oriented x 3, not in distress, speaks in sentences with no effort or accessory muscle use Eyes- anicteric Neck- no JVD Lungs- clear BS BL Heart- normal rate, regular rhythm; no murmurs Abdomen- normal bowel sounds, nondistended, soft, nontender Extremities- no pretibial edema, no calf tenderness Neuro- alert, oriented x 3; no gross focal neurologic deficits Skin- warm & dry Results & Data Results & Data ([facility]) Vital Signs (Past 12 Hours) Vital Signs Temp Pulse Pulse Resp BP Pulse Ox 03/23/21 11:00 36.9 C 73 18 110/66 100 03/23/21 08:00 85 03/23/21 07:00 37.1 C 93 H 16 104/74 98 all noted and reviewed including below
[2021-03-23 15:34] VITALS: BP 112/70
--- NOTE | 2021-03-23 16:03 | Discharge Summary ---
Date of Service March 23, 2021 Admission HPI Per Admitting Provider History obtained from patient and records. Medical history significant for hypothyroidism currently not on medications. Patient has been experiencing intermittent achy chest pain going to shoulders and neck for about 5 years now. Occurring about 5 times a year with spontaneous resolution. Outpatient TTE and Holter monitor unremarkable. The last 2 weeks, patient noted fever, chills, night sweats. Worsening chest pain with tachycardia episodes. Outpatient COVID-19 test was negative. Some stress at home. Patient seen at local [facility]. T wave inversions noted in the inferior leads along with PVCs. Patient subsequently directed to [facility]. CT chest showed No pulmonary embolism.No focal consolidation/pneumonia.Findings of anasarca, including pericardial effusion. TTE : EF 55 to 59%, no LV segmental wall motion abnormality. Moderate size 5 to 10 mm circumferential pericardial effusion noted. Fibrin stranding noted within pericardial effusion. Overt signs of tamponade are absent. Lyme screen was negative. Troponin was negative. JOVAN screen was negative CRP elevated at 140. Rheumatoid factor was noted to be slightly elevated at 18. Patient given IV Decadron at the ER which significantly relieve chest discomfort. Initial plan to transfer patient to [facility] for Cardiology services. Patient later accepted as a direct admission at [facility] due to prolonged [facility] bed wait. Patient currently comfortable at PCU room. Complains of minimal epigastric discomfort. Patient denies black/bloody stools. 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 Admission Exam (Per Admitting) Constitutional GENERAL: Comfortable, pleasant, no respiratory distress SKIN: Normal color, warm HEENT: Bespectacled, [place] palpebral conjunctivae, no ptosis, moist buccal mucosa NECK : Supple, no tenderness CHEST : CTA, no tenderness HEART : RRR, no obvious murmurs ABDOMEN: Some distention, nontender EXTREMITIES : No LE swelling/tenderness, no other conspicuous deformities noted NEUROLOGIC : Coherent, no facial asymmetry, no other gross focality Discharge Data Consultations 03/19/21 15:34 Consult Cardiology Routine 03/20/21 05:37 Consult Rheumatology Routine 03/20/21 18:22 Consult Gastroenterology Routine Procedures Performed CT OF THE ABDOMEN AND PELVIS WITHOUT CONTRAST CLINICAL HISTORY: abdominal pain, possible gastric ulcer COMPARISON STUDY: MRI of the pelvis December 08, 2013. TECHNIQUE: Axial images of the abdomen and pelvis were obtained without IV contrast. Images were reviewed in the axial, sagittal, and coronal planes. Automated exposure control was utilized for the study. A dose lowering technique was utilized adhering to the principles of ALARA. FINDINGS: Visualized portions of the lower chest demonstrated a s [id number] pericardial effusion. Decreased attenuation of the cardiac blood pool is noted. Small left and trace right pleural effusions are noted. Associated airspace opacities represent atelectasis. No pneumatosis, free air or portal venous gas is present. Evaluation of the abdomen and pelvis is suboptimal on this unenhanced exam. Unenhanced images of the liver, spleen, adrenal glands, kidneys and pancreas are unremarkable. There is no biliary or pancreatic ductal dilatation. There may be mild gallbladder wall thickening, a nonspecific finding. The gallbladder is not distended. There is no convincing evidence for acute cholecystitis. Stomach is suboptimally assessed by CT but no adjacent abnormality is identified. There is no evidence for a bowel obstruction. The appendix is normal. There is a 2.4 cm cyst or dominant follicle within the right ovary. A small amount of fluid within the pelvis is noted. There is no lymphadenopathy. No acute fracture or suspicious lesion is identified within visualized skeletal structures. IMPRESSION: 1. Small to moderate pericardial effusion. Decreased attenuation of the cardiac blood flow which may indicate anemia. 2. Small left and trace right pleural effusions. 3. No pneumoperitoneum. Suboptimal evaluation of the stomach given CT technique but no adjacent abnormality. 4. Mild gallbladder wall thickening, a nonspecific finding. No gallbladder distention. No convincing evidence for acute cholecystitis. 5. Small amount of fluid within the pelvis. ACT 112: Negative or not required by law. Hospital Course (1) Pericardial effusion: unclear etiology echo: small circumferential pericardial effusion with no tamponade, unchanged from 03/19/[address] Edwards and Dr. Martínez consulted placed on Colchicine BID Ibuprofen 800mg TID added for better control of pain pain improved gradually cleared for discharge [place] [facility] [place] plan: Colchicine 0.3mg BID x 3 months Ibuprofen 800mg TID x 1 week, if symptoms improve and inflammatory markers are normal, may taper Ibuprofen ff up with [facility] [place] Cardiology in 2 weeks repeat Echo in 2 weeks evaluated by Rheumatology as well, Dr. Tang autoimmune serologic panel: pending ff up with Dr. Tang in 2 weeks Anemia, Iron deficiency from Menorrhagia? Iron level 18 Hg stable at ~10 Protonix IV BID, Sucralfate started CT abd/pelvis: unrevealing fecal occult blood negative GI consulted- no scopes planned at this point IV iron given FESo4 BID, Protonix 40mg daily closely monitor CBC and Fe as outpatient patient reports heavy menses please refer to [employer] as well Hypothyroidism, off medications for years now., TSH within normal limits DVT prophylaxis. SCDs Re: Possible intervention Full code plan of care discussed with patient and her in detail and at length all questions answered they are understanding, agreeable, comfortable with the plan of care
[2021-03-26 23:12] LABS: ANCA Screen Negative (Negative); Angiotensin Converting Enzyme 24 U/L (9-67); Anti Cardiolipin Ab IgG <2.0 GPL-U/mL; Anti Cardiolipin Ab IgM 8.1 MPL-U/mL; Anti-Cardiolipin Ab IgA 2.3 APL-U/mL; B2 Glycoprotein IgG <2.0 U/mL (<20.0); B2 Glycoprotein IgM 8.8 U/mL (<20.0); Complement C3 116 mg/dL (83-193); Complement Total(CH50) >60 U/mL (31-60); Cyclic Citrullinated Pep IgG <16 UNITS
[2021-03-28 10:23] LABS: DRVVT Neutralization (Reflex) Negative (Negative); Lupus Hex Phase (Rflxdonotord) Weak Positive (Negative); Thrombin Time (reflex only) 15 sec (13-19)
== END 2021-03-23 16:08 | disposition home or self-care (01) | DRG 316 ==
LOC: SUATTDRO 20:29 → 1E 20:29

== ENCOUNTER 2021-03-26 02:53 | Observation (INO) ==
[2021-03-26] MEDS ORDERED: GI COCKTAIL ED USE PO ONE (05:08)
[2021-03-26] MEDS ORDERED: FAMOTIDINE 20MG/5ML IV PUSH IV STA ×2 (05:08→05:47)
[2021-03-26] MEDS ORDERED: SODIUM CHLORIDE 0.9% 1000ML 1,000 ML IV STA (05:08)
[2021-03-26] MEDS ORDERED: dexAMETHasone**PF** 10 MG/ML VIAL IV ONE (05:47)
[2021-03-26 06:19] LABS: Basophils # (auto) 0.01 K/uL (0-0.2); Basophils % (auto) 0.1 %; Eosinophils # (auto) 0.02 K/uL (0-0.5); Eosinophils % (auto) 0.1 %; Hemoglobin 9.9 g/dL (12.0-16.0); Immature Granulocytes # (auto) 0.03 K/uL (0.00-0.02); Immature Granulocytes % (auto) 0.2 %; Lymphocytes # (auto) 1.08 K/uL (1.2-3.4); Lymphocytes % (auto) 7.7 %; Mean Corpuscular Hemoglobin 28.9 pg (25-34); Mean Corpuscular Volume 87.7 fL (80-100); Monocytes # (auto) 0.86 K/uL (0.11-0.59); Monocytes % (auto) 6.1 %; Neutrophils % (auto) 85.8 %; Platelet Count 434 K/uL (130-400); RDW Coefficient of Variation 14.6 % (11.5-14.5); Red Blood Count 3.42 M/uL (4.2-5.4)
--- NOTE | 2021-03-26 06:29 | Emergency Department Note ---
Impression & Plan Pericardial effusion, Epigastric abdominal pain ED Provider Note CHIEF COMPLAINT: Epigastric pain, left shoulder pain HISTORY OF PRESENT ILLNESS: This 40-year-old female patient presents to the emergency department with complaints of epigastric pain and referred pain to the left medial clavicle/shoulder. Patient states she has some chronic pain in the chest and left shoulder but she does believe that this pain is different. Patient was recently hospitalized and diagnosed with pericardial effusion. She was discharged on colchicine and ibuprofen. Patient states she has "flareups" that last 2 weeks. Patient has been taking Protonix daily. She was not given a prescription for Carafate which she believes may be responsible for her discomfort. Patient is not able to identify a certain position but states the pain seems to worsen with change in position. She has not had a fever, vomiting or diarrhea. She denies any difficulty with urination. REVIEW OF SYSTEMS: A review of systems was performed with positives and pertinent negatives listed in the history of present illness. 10 systems were reviewed and are otherwise negative. ALLERGIES: see below MEDICATIONS: see below PMH: see below SOCIAL HISTORY: see below DDx: Appendicitis, ovarian cyst, ovarian torsion, ectopic , TOA, PID, infections, diverticulitis, UTI, obstruction, mesenteric ischemia, aortic pathology, inflammatory bowel disease, renal colic, PUD, pancreatitis, biliary pathology, hernia, volvulus, constipation, as well as other pathologies. PHYSICAL EXAM: Vital signs reviewed. General: Well-appearing 40 yo female, in some discomfort. HEENT: No scleral icterus, PERRLA, neck supple. Atraumatic. Cardiovascular: Regular rate and rhythm, no extra sounds. Pulmonary: Clear to auscultation bilaterally, normal work of breathing. Abdomen: Soft, tender to palpation in the epigastric region, no rebound, no guarding, nondistended, positive bowel sounds. Musculoskeletal: Atraumatic, no peripheral edema. Neurologic: Patient awake alert and oriented x 3 Skin: Warm, dry, no rash EMERGENCY DEPARTMENT COURSE/MDM: This pt was evaluated and appeared to be in some discomfort. IV access was obtained and laboratory work was drawn. The patient was medicated with IV dexamethasone and IV Zofran as the steroids seem to be what relieved her pain the best on her last admission. Patient also received IV Pepcid 20 mg. Patient's laboratory work reveals mild leukocytosis of 14 with a neutrophil predominance. Chest x-ray reveals a cardiomegaly/likely pericardial effusion. Ultrasound of the gallbladder was performed and reveals marked gallbladder wall thickening with edema. Etiology is unclear however there is also an abnormal flow in the portal vein concerning to radiology for cardiovascular etiology. It is unclear if the patient's presentation is rheumatologic in nature however she apparently had a CT scan of the chest at the outside hospital prior to her last admission that was negative for PE and indicated the pericardial l effusion. Given her significant pain despite her recent stay in the hospital and unusual presentation today, patient will be evaluated by the hospitalist service for further management. Patient was made aware of the plan and agreed. MONITORING: An order for cardiac monitoring was placed and the patient is noted to be in a NSR at 77 beats per minute. EKG: EKG reveals a sinus tachycardia at 95 bpm. Normal axis. Nonspecific and change. Diffuse T wave abnormality. QTC is 459. No PVC, no PAC. RADIOLOGY: See below DISPOSITION: Admit Past Med/Surg History Medical History No pertinent family history No pertinent past medical history Surgical History No pertinent past surgical history Social History Smoking Status: Never smoker Hx Alcohol Use: Yes Alcohol type: wine Hx Substance Use: No Preferred Language: Armenian Communication Ability: Effective Svp Monetization Required: No Beliefs That Will Affect Care: Zoroastrianism Zoroastrianism Beliefs: Sabianist. Current Living Situation: Spouse and Family Feels Safe at Home: Yes Assistive Devices: Glasses Allergies Allergies Allergy/AdvReac Type Severity Reaction Status Date / Time Sulfa (Sulfonamide Allergy Unknown HIVES, rash Verified 03/09/21 20:50 Antibiotics) Home Meds Home Medications Medication Instructions Recorded Confirmed valacyclovir 500 mg tablet 500 mg PO BID PRN 03/19/21 03/26/21 pantoprazole 40 mg tablet,delayed 40 mg PO BID 03/26/21 03/26/21 release (Protonix) sucralfate 1 gram tablet 1 g PO QID 03/26/21 03/26/21 Previous Rx's Medication Instructions Recorded colchicine 0.6 mg tablet (Colcrys) 0.6 mg PO BID 30 Days #60 tab 03/23/21 ferrous sulfate 325 mg (65 mg 325 mg PO BIDM 30 Days #60 tab 03/23/21 iron) tablet,delayed release ibuprofen 600 mg tablet 600 mg PO Q8H 7 Days #21 tab 03/23/21 Results & Data (ED) Vital Signs Vital Signs - 24 hr 03/26/21 02:58 03/26/21 05:54 03/26/21 08:00 Temperature 37.4 C 36.7 C Temperature Source Temporal Artery Scan Oral Pulse Rate 106 H Pulse Rate [Right Finger] 84 89 Pulse Rhythm [Right Finger] Regular Pulse Strength [Right Finger] Normal Respiratory Rate 18 21 20 Respiratory Effort / Characteristics Non-Labored Spontaneous Respiratory Depth Normal Normal Respiratory Pattern Regular Blood Pressure 109/70 Blood Pressure [Right Arm] 98/68 L 118/77 Blood Pressure Mean 83 Blood Pressure Mean [Right Arm] 78 90 Blood Pressure Position [Right Arm] Sitting Sitting Pulse Oximetry 99 100 98 Oxygen Delivery Method Room Air Room Air Sepsis Recent Fever Within 48 Hours No Sepsis New/Unexplained Change in Mental Status N/A Sepsis Action Taken by Nursing No Action Required 03/26/21 08:30 Temperature Temperature Source Pulse Rate Pulse Rate [Right Finger] 91 H Pulse Rhythm [Right Finger] Regular Pulse Strength [Right Finger] Normal Respiratory Rate 20 Respiratory Effort / Characteristics Non-Labored Spontaneous Respiratory Depth Normal Respiratory Pattern Regular Blood Pressure Blood Pressure [Right Arm] 101/61 Blood Pressure Mean Blood Pressure Mean [Right Arm] 74 Blood Pressure Position [Right Arm] Sitting Pulse Oximetry 98 Oxygen Delivery Method Room Air Sepsis Recent Fever Within 48 Hours Sepsis New/Unexplained Change in Mental Status Sepsis Action Taken by [facility] Medications Current Medication List: was personally reviewed by me Laboratory Data Attestation: I reviewed the patient's lab results. Result diagrams: 03/26/21 06:00 03/26/21 06:00 Lab Results 03/26/21 03/26/21 03/26/21 Range/Units 06:00 06:00 06:00 WBC 14.00 H (4.8-10.8) K/uL RBC 3.42 L (4.2-5.4) M/uL Hgb 9.9 L (12.0-16.0) g/dL Hct 30.0 L (37-47) % MCV 87.7 (80-100) fL MCH 28.9 (25-34) pg MCHC 33.0 (32-36) g/dL RDW Std Deviation 47.0 H (36.4-46.3) fL RDW Coeff of Agustin 14.6 H (11.5-14.5) % Plt Count 434 H (130-400) K/uL MPV 9.0 (7.4-10.4) fL Immature Gran % (Auto) 0.2 % Neut % (Auto) 85.8 % Lymph % (Auto) 7.7 % [place] % (Auto) 6.1 % Eos % (Auto) 0.1 % Baso % (Auto) 0.1 % Neut # (Auto) 12.00 H (1.4-6.5) K/uL Lymph # (Auto) 1.08 L (1.2-3.4) K/uL [place] # (Auto) 0.86 H (0.11-0.59) K/uL Eos # (Auto) 0.02 (0-0.5) K/uL Baso # (Auto) 0.01 (0-0.2) K/uL Immature Gran # (Auto) 0.03 H (0.00-0.02) K/uL ESR (0-20) mm/hr Sodium 130 L (136-145) mmol/L Potassium 4.0 (3.5-5.1) mmol/L Chloride 95 L (98-107) mmol/L Carbon Dioxide 26 (21-32) mmol/L Anion Gap 9.0 (3-11) BUN 7 (7-18) mg/dl Creatinine 0.69 (0.6-1.2) mg/dl Est Cr Clr Drug Dosing 106.8 ml/min Est GFR ( Amer) 124.4 ml/min Est GFR (Non-Af Amer) 107.4 ml/min BUN/Creatinine Ratio 9.8 L (10-20) Glucose 99 (70-99) mg/dl Calcium 9.6 (8.5-10.1) mg/dl Total Bilirubin 0.7 (0.2-1) mg/dl AST 17 (15-37) U/L ALT 45 (12-78) U/L Alkaline Phosphatase 104 (45-117) U/L Lactate Dehydrogenase (84-246) U/L C-Reactive Protein (0-0.29) mg/dl Total Protein 7.8 (6.4-8.2) gm/dl Albumin 3.1 L (3.4-5.0) gm/dl Globulin 4.7 H (2.5-4.0) gm/dl Albumin/Globulin Ratio 0.7 L (0.9-2) Lipase 127 (73-393) U/L HCG, Qual Negative (Negative) Urine Color Urine Appearance (Clear) Urine pH (4.5-7.5) Ur Specific Needles (1.000-1.030) Urine Protein (Negative) Urine Glucose (UA) (Negative) Urine Ketones (Negative) Urine Blood (Negative) Urine Nitrite (Negative) Urine Bilirubin (Negative) Urine Urobilinogen (Negative) Ur Leukocyte Esterase (Negative) SARS-CoV-2, RNA, NAAT (NEGATIVE) 03/26/21 03/26/21 03/26/21 Range/Units 07:20 07:33 08:25 WBC (4.8-10.8) K/uL RBC (4.2-5.4) M/uL Hgb (12.0-16.0) g/dL Hct (37-47) % MCV (80-100) fL MCH (25-34) pg MCHC (32-36) g/dL RDW Std Deviation (36.4-46.3) fL RDW Coeff of Agustin (11.5-14.5) % Plt Count (130-400) K/uL MPV (7.4-10.4) fL Immature Gran % (Auto) % Neut % (Auto) % Lymph % (Auto) % [place] % (Auto) % Eos % (Auto) % Baso % (Auto) % Neut # (Auto) (1.4-6.5) K/uL Lymph # (Auto) (1.2-3.4) K/uL [place] # (Auto) (0.11-0.59) K/uL Eos # (Auto) (0-0.5) K/uL Baso # (Auto) (0-0.2) K/uL Immature Gran # (Auto) (0.00-0.02) K/uL ESR (0-20) mm/hr Sodium (136-145) mmol/L Potassium (3.5-5.1) mmol/L Chloride (98-107) mmol/L Carbon Dioxide (21-32) mmol/L Anion Gap (3-11) BUN (7-18) mg/dl Creatinine (0.6-1.2) mg/dl Est Cr Clr Drug Dosing ml/min Est GFR ( Amer) ml/min Est GFR (Non-Af Amer) ml/min BUN/Creatinine Ratio (10-20) Glucose (70-99) mg/dl Calcium (8.5-10.1) mg/dl Total Bilirubin (0.2-1) mg/dl AST (15-37) U/L ALT (12-78) U/L Alkaline Phosphatase (45-117) U/L Lactate Dehydrogenase 151 (84-246) U/L C-Reactive Protein (0-0.29) mg/dl Total Protein (6.4-8.2) gm/dl Albumin (3.4-5.0) gm/dl Globulin (2.5-4.0) gm/dl Albumin/Globulin Ratio (0.9-2) Lipase (73-393) U/L HCG, Qual (Negative) Urine Color Yellow Urine Appearance Clear (Clear) Urine pH 5.5 (4.5-7.5) Ur Specific Needles 1.006 (1.000-1.030) Urine Protein Negative (Negative) Urine Glucose (UA) Negative (Negative) Urine Ketones 1+ H (Negative) Urine Blood Negative (Negative) Urine Nitrite Negative (Negative) Urine Bilirubin Negative (Negative) Urine Urobilinogen Negative (Negative) Ur Leukocyte Esterase Negative (Negative) SARS-CoV-2, RNA, NAAT NEGATIVE (NEGATIVE) 03/26/21 03/26/21 Range/Units 08:26 08:26 WBC (4.8-10.8) K/uL RBC (4.2-5.4) M/uL Hgb (12.0-16.0) g/dL Hct (37-47) % MCV (80-100) fL MCH (25-34) pg MCHC (32-36) g/dL RDW Std Deviation (36.4-46.3) fL RDW Coeff of Agustin (11.5-14.5) % Plt Count (130-400) K/uL MPV (7.4-10.4) fL Immature Gran % (Auto) % Neut % (Auto) % Lymph % (Auto) % [place] % (Auto) % Eos % (Auto) % Baso % (Auto) % Neut # (Auto) (1.4-6.5) K/uL Lymph # (Auto) (1.2-3.4) K/uL [place] # (Auto) (0.11-0.59) K/uL Eos # (Auto) (0-0.5) K/uL Baso # (Auto) (0-0.2) K/uL Immature Gran # (Auto) (0.00-0.02) K/uL ESR 80 H (0-20) mm/hr Sodium (136-145) mmol/L Potassium (3.5-5.1) mmol/L Chloride (98-107) mmol/L Carbon Dioxide (21-32) mmol/L Anion Gap (3-11) BUN (7-18) mg/dl Creatinine (0.6-1.2) mg/dl Est Cr Clr Drug Dosing ml/min Est GFR ( Amer) ml/min Est GFR (Non-Af Amer) ml/min BUN/Creatinine Ratio (10-20) Glucose (70-99) mg/dl Calcium (8.5-10.1) mg/dl Total Bilirubin (0.2-1) mg/dl AST (15-37) U/L ALT (12-78) U/L Alkaline Phosphatase (45-117) U/L Lactate Dehydrogenase (84-246) U/L C-Reactive Protein 17.00 H (0-0.29) mg/dl Total Protein (6.4-8.2) gm/dl Albumin (3.4-5.0) gm/dl Globulin (2.5-4.0) gm/dl Albumin/Globulin Ratio (0.9-2) Lipase (73-393) U/L HCG, Qual (Negative) Urine Color Urine Appearance (Clear) Urine pH (4.5-7.5) Ur Specific Needles (1.000-1.030) Urine Protein (Negative) Urine Glucose (UA) (Negative) Urine Ketones (Negative) Urine Blood (Negative) Urine Nitrite (Negative) Urine Bilirubin (Negative) Urine Urobilinogen (Negative) Ur Leukocyte Esterase (Negative) SARS-CoV-2, RNA, NAAT (NEGATIVE) Administered Medications Discontinued Medications Al Hydrox/Mg Hydrox/Simethicone (Gi Cocktail Ed Use) 1 dose PO ONE ONE Stop: 03/26/21 05:09 Last Admin: 03/26/21 05:50 Dose: 1 dose Documented by: [id number] Colchicine (Colchicine 0.6 Mg Tab) 0.6 mg PO NOW ONE Stop: 03/26/21 09:16 Last Admin: 03/26/21 09:37 Dose: 0.6 mg Documented by: [id number] Dexamethasone Sodium Phosphate (DexamethasonePf 10 Mg/Ml Vial) 6 mg IV NOW ONE Stop: 03/26/21 05:48 Last Admin: 03/26/21 06:08 Dose: 6 mg Documented by: [id number] Famotidine (Famotidine 20mg/5ml Iv Push) 20 mg IV ONE STA Stop: 03/26/21 05:09 Last Admin: 03/26/21 06:01 Dose: 20 mg Documented by: [id number] Hydromorphone HCl (Hydromorphone Inj 0.5 Mg/0.5 Ml Syr) 0.5 mg IV NOW STA Stop: 03/26/21 07:19 Last Admin: 03/26/21 07:34 Dose: 0.5 mg Documented by: [id number] Sodium Chloride (Nss 1000ml) 1,000 mls @ 999 mls/hr IV .Q1H1M STA Stop: 03/26/21 06:08 Last Infusion: 03/26/21 07:05 Dose: 0 mls/hr Documented by: [id number] Admin: 03/26/21 06:05 Dose: 999 mls/hr Documented by: [id number] Ondansetron HCl (Ondansetron Inj 2 Mg/Ml 2 Ml Vial) 4 mg IV NOW STA Stop: 03/26/21 07:19 Last Admin: 03/26/21 07:34 Dose: 4 mg Documented by: [id number] Pantoprazole Sodium (Pantoprazole 40 Mg Tab) 40 mg PO NOW STA Stop: 03/26/21 09:16 Last Admin: 03/26/21 09:36 Dose: 40 mg Documented by: [id number] Sucralfate (Sucralfate 1 Gm Tab) 1 gm PO NOW STA Stop: 03/26/21 09:16 Last Admin: 03/26/21 09:36 Dose: 1 gm Documented by: [id number] Imaging Data Radiologist's Impression: Gallbladder Ultrasound 03/26/21 05:45 US gallbladder CLINICAL HISTORY: Epigastric pain. COMPARISON STUDY: CT of the abdomen and pelvis March 21, 2021. FINDINGS: The liver is mildly enlarged. Two echogenic right hepatic lobe lesions measure up to 1.2 cm. Portal triads are prominent. Intrahepatic bile ducts are prominent. Portal triads are also prominent However, the caliber of the common bile duct is normal, measuring 4 mm. There is no definite biliary ductal d ilatation. There is pulsatile flow within the main portal vein. Velocities within the main hepatic artery appear increased. Trace perihepatic ascites is noted. Marked gallbladder wall thickening is noted. A few small echogenic foci adherent to the gallbladder wall is favored tiny polyps. Sonographic Brar sign was difficult to assess for in this patient given pain medication administration. There is trace pericholecystic fluid. Pancreas is unremarkable by sonography. There is no right hydronephrosis. IMPRESSION: 1. Markedly thickened, edematous gallbladder wall. However, no definite gallstones. Gallbladder wall thickening is a nonspecific finding however this degree of wall thickening is not typical for acute cholecystitis. Although w ithin the differential, cholecystitis is considered unlikely. 2. Mild hepatomegaly. Trace perihepatic ascites. 3. Pulsatile flow within the main portal vein and apparent increased velocity within the hepatic artery. These are nonspecific findings. Cardiac etiology is within the differential. 4. A few echogenic right hepatic lobe lesions which favor hemangiomas. ACT 112: Negative or not required by law. Electronically signed by: Alejandro Yang M.D. 03/26/2021 7:23 AM Chest X-Ray 03/26/21 06:35 XR chest 1V portable CLINICAL HISTORY: Atypical chest pain. COMPARISON STUDY: Chest radiograph March 09, 2021. FINDINGS: Lung volumes are normal. There is no pneumothorax. There is a possible trace left pleural effusion. Mild left basilar opacity favors atelectasis. There is no consolidation to suggest pneumonia. There is pulmonary vascular congestion without overt pulmonary edema. Cardiac silhouette has slightly increased in size since prior exam. IMPRESSION: 1. Slight increase in size of the cardiac silhouette since prior chest radiograph. A pericardial effusion cannot be excluded. 2. Pulmonary vascular congestion. 3. Trace left pleural effusion. ACT 112: Negative or not required by law. Electronically signed by: Alejandro Yang M.D. 03/26/2021 7:26 AM Blood Pressure Blood Pressure Findings: Low blood pressure Blood Pressure Disposition: further management by hospitalist Discharge Plan Visit Data Chief Complaint: GI Assessment Stated Complaint: UPPR GASTRIC PAIN RADIATING-GETTING WORSE ED Provider: Binta Jones Discharge Problem: Pericardial effusion, Epigastric abdominal pain Forms Stand Alone Forms: [facility] Prescriptions Prescriptions: No Action valacyclovir 500 mg Tablet 500 mg PO BID PRN (Reason: HSV OUTBREAK) RF: 0 ferrous sulfate 325 mg (65 mg iron) Tablet,Delayed Release (Dr/Ec) 325 mg PO BIDM 30 Days Qty: 60 RF: 2 ibuprofen 600 mg Tablet 600 mg PO Q8H 7 Days Qty: 21 RF: 0 colchicine [Colcrys] 0.6 mg Tablet 0.6 mg PO BID 30 Days Qty: 60 RF: 2 sucralfate 1 gram tablet 1 g PO QID RF: 0 pantoprazole [Protonix] 40 mg tablet,delayed release (DR/EC) 40 mg PO BID RF: 0 Referrals Referrals: Sheila Swan PA-C [Primary Care Provider] -
[2021-03-26 06:36] LABS: Albumin Level 3.1 gm/dl (3.4-5.0); BUN Creatinine Ratio 9.8 (10-20); Calcium 9.6 mg/dl (8.5-10.1); Creatinine Clr Calc Pharmacy 106.8 ml/min; Est GFR (African American) 124.4 ml/min; Est GFR (Non-African American) 107.4 ml/min
[2021-03-26 06:39] LABS: Albumin Globulin Ratio 0.7 (0.9-2); Bilirubin,Total 0.7 mg/dl (0.2-1); Globulin 4.7 gm/dl (2.5-4.0); Total Protein 7.8 gm/dl (6.4-8.2)
[2021-03-26 06:52] LABS: Pregnancy Test, Serum Negative (Negative)
[2021-03-26] MEDS ORDERED: ONDANSETRON INJ 2 MG/ML 2 ML VIAL IV STA (07:18)
[2021-03-26] MEDS ORDERED: HYDROmorphone INJ 0.5 MG/0.5 ML SYR IV STA (07:18)
--- NOTE | 2021-03-26 07:24 | Ultrasound Report ---
US gallbladder CLINICAL HISTORY: Epigastric pain. COMPARISON STUDY: CT of the abdomen and pelvis March 21, 2021. FINDINGS: The liver is mildly enlarged. Two echogenic right hepatic lobe lesions measure up to 1.2 cm . Portal triads are prominent. Intrahepatic bile ducts are prominent. Portal triads are also prominen t However, the caliber of the common bile duct is normal, measuring 4 mm. There is no definite biliar y ductal dilatation. There is pulsatile flow within the main portal vein. Velocities within the main hepatic artery appear increased. Trace perihepatic ascites is noted. Marked gallbladder wall thickeni ng is noted. A few small echogenic foci adherent to the gallbladder wall is favored tiny polyps. Sono graphic Brar sign was difficult to assess for in this patient given pain medication administration. There is trace pericholecystic fluid. Pancreas is unremarkable by sonography. There is no right hydr onephrosis. IMPRESSION: 1. Markedly thickened, edematous gallbladder wall. However, no definite gallstones. Gallbladder wall thickening is a nonspecific finding however this degree of wall thickening is not typical for acute cholecystitis. Although within the differential, cholecystitis is considered unlikely. 2. Mild hepatomegaly. Trace perihepatic ascites. 3. Pulsatile flow within the main portal vein and apparent increased velocity within the hepatic tristan ry. These are nonspecific findings. Cardiac etiology is within the differential. 4. A few echogenic right hepatic lobe lesions which favor hemangiomas. ACT 112: Negative or not required by law. Electronically signed by: Alejandro Yang M.D. 03/26/2021 7:23 AM
--- NOTE | 2021-03-26 07:27 | XRay Report ---
XR chest 1V portable CLINICAL HISTORY: Atypical chest pain. COMPARISON STUDY: Chest radiograph March 09, 2021. FINDINGS: Lung volumes are normal. There is no pneumothorax. There is a possible trace left pleural e ffusion. Mild left basilar opacity favors atelectasis. There is no consolidation to suggest pneumonia . There is pulmonary vascular congestion without overt pulmonary edema. Cardiac silhouette has slight ly increased in size since prior exam. IMPRESSION: 1. Slight increase in size of the cardiac silhouette since prior chest radiograph. A pericardial effu rodriguez cannot be excluded. 2. Pulmonary vascular congestion. 3. Trace left pleural effusion. ACT 112: Negative or not required by law. Electronically signed by: Alejandro Yang M.D. 03/26/2021 7:26 AM
[2021-03-26 07:54] LABS: Appearance Urine Clear (Clear); Bilirubin Urine Negative (Negative); Blood Urine Negative (Negative); Color Urine Yellow; Glucose Urine UA Negative (Negative); Ketones Urine 1+ (Negative); Leukocyte Esterase Urine Negative (Negative); Nitrite Urine Negative (Negative); Protein Urine Negative (Negative); Specific Gravity Urine 1.006 (1.000-1.030); Urobilinogen Urine Negative (Negative); pH Urine 5.5 (4.5-7.5)
--- NOTE | 2021-03-26 09:08 | History & Physical Report ---
Date of Service March 26, 2021 Assessment & Plan (1) Pericarditis: (2) Pericardial effusion: (3) Rheumatoid factor positive: (4) Epigastric abdominal pain: (5) Anemia: Plan: This is a 40-year-old female who has significant past medical history of iron deficiency anemia and pericarditis who presents to ED secondary to chest pain and epigastric pain x3 days since discharge. Dx with acute Pericarditis recent admission with small pleural effusion and no evidence of tamponade etiology uncertain but felt possibly 2/2 to autoimmune process, RF +, JOVAN negative, rheum panel still pending. She was seen and evaluated by Dr. Martínez and Dr. Tang during admission. Discharged on ibuprofen and colchine. Presents today with worsening CP/Epigastric pain, CXR with evidence of L pleural effusion with mild volume overload Discussed with Dr. Martínez. Admit to PCU start prednisone 30mg daily, will need to discuss with rheumatology for duration consult cardiology repeat echocardiogram cycle trops continue colchcine RF + rheumatologic work up still pending will need close follow up with rheumatology as outpt Epigastric abdominal pain may be a component of pericarditis with referred pain, but also possible component of gastritis continue PPI by mouth BID, carafate QID consult gen surg given abd gb u/s discussed with GI who recommends OP follow up and endoscopy if sx worsen Iron def anemia continue iron supplementation received iron infusion last hospitalization referral to OP hematology upon discharge DVT ppx: SCD/TEDS for now, will hold chemical prophylaxis in setting of concern for gastritis, encourage ambulation Dispo: PCU PCP: Sheila Swan PA-C FULL CODE Pt was seen and examined in collaboration with Dr. Cortez, please see addendum History of Present Illness Chief Complaint: Chest pain and Epigastric pain x 3 days since discharge Primary Care Provider: Sheila Swan PA-C This is a 40-year-old female who has significant past medical history of iron deficiency anemia and pericarditis who presents to ED secondary to chest pain and epigastric pain x3 days since discharge. Of significance patient was recently hospitalized 03/19 through 03/23 secondary to similar symptoms. During this hospital admission patient was diagnosed with acute pericarditis. Echocardiogram on 03/20 revealed EF 55 to 60% with a small pericardial effusion. She was initiated on colchicine 0.6 mg twice daily and ibuprofen 600 mg 3 times daily. She was seen and evaluated by rheumatology as it was felt this may be secondary to a rheumatologic or autoimmune process. Her rheumatoid factor titer was elevated however JOVAN negative x3. Serologic rheumatoid panel continues to be pending. On day of discharge her chest pain had improved and she was discharged to home. Hospitalization was complicated by iron deficiency anemia. She did receive iron infusions and was discharged home on ferrous sulfate twice a day. She was seen and evaluated by GI who recommended oral Protonix and Carafate therapy, but felt no acute intervention needed. They recommended referral to outpatient hematology as well as outpatient endoscopy if symptoms continued. When patient returned home she continued to have precordial chest discomfort and epigastric pain. It gradually worsened over the past 3 days. Overnight her pain became extremely severe, 8 out of 10, unable to lie flat and she returned to the ER. Her pain this morning was mostly in the epigastrium with radiation to the left upper quadrant, precordium and left shoulder. She feels a fullness in her epigastrium and mild nausea but denies vomiting. She does complain of chills and sweats but denies documented fever. She further denies lightheadedness, dizziness, headache, recent illness or recent URI symptoms, shortness breath at rest, hemoptysis, melena, medic easier or change in urination. She does have shortness of breath and chest pain with exertion. She feels difficulty taking a deep breath due to inspiratory chest pain. She does complain of dry cough. Pain significantly worsens when lying on left side. In ED she remained hemodynamically stable. Her WBC was elevated at 14 K, H&H low at 9.9 and 30.0, ESR 80, CRP 17, sodium 130, chloride 95 and urinalysis negative.Chest x-ray revealed slight increase in size of cardiac silhouette since prior chest radiograph no pericardial effusion cannot be excluded, pulmonary vascular congestion and trace pleural effusion noted. No overt pulmonary edema. Gallbladder ultrasound was ordered which revealed markedly thickened, edematous gallbladder wall. However no definitive gallstones. Gallbladder wall thickening nonspecific finding however this degree of wall thickening is not typical for acute cholecystitis. Mild hepatomegaly and trace perihepatic ascites noted. In ED she did receive IV dexamethasone, IV famotidine and Maalox and symptoms are currently a 2 out of 10. Allergies Allergy/AdvReac Type Severity Reaction Status Date / Time Sulfa (Sulfonamide Allergy Unknown HIVES, rash Verified 03/09/21 20:50 Antibiotics) Home Medications Medication Instructions Recorded Confirmed Type valacyclovir 500 mg tablet 500 mg PO BID PRN 03/19/21 03/26/21 History colchicine 0.6 mg tablet (Colcrys) 0.6 mg PO BID 30 Days #60 tab 03/23/21 03/26/21 Rx ferrous sulfate 325 mg (65 mg 325 mg PO BIDM 30 Days #60 tab 03/23/21 03/26/21 Rx iron) tablet,delayed release ibuprofen 600 mg tablet 600 mg PO Q8H 7 Days #21 tab 03/23/21 03/26/21 Rx pantoprazole 40 mg tablet,delayed 40 mg PO BID 03/26/21 03/26/21 History release (Protonix) sucralfate 1 gram tablet 1 g PO QID 03/26/21 03/26/21 History Past Med/Surg History Medical History Anemia HSV (herpes simplex virus) infection Surgical History History of colonoscopy History of wisdom tooth extraction Family History Mother Breast cancer Aunt Mitral valve disease Social History Smoking Status: Never smoker Hx Alcohol Use: Yes Alcohol type: wine Hx Substance Use: No Preferred Language: Northern Irish Communication Ability: Effective Payroll Specialist Required: No Beliefs That Will Affect Care: Samaritan Samaritan Beliefs: Episcopalian. Current Living Situation: Spouse and Family Feels Safe at Home: Yes Assistive Devices: Glasses Review of Systems Review of Systems: All systems reviewed & are unremarkable except as noted in HPI & below Physical Exam Physical Exam: Constitutional: WD/WN, pale, F, appears acutely ill, vitals as above, NAD, sitting up in bed, pleasant, conversing easily Head: Normocephalic, Atraumatic Eyes: PERRL, conjunctivae normal, anicteric sclerae ENMT: external ear and nose normal, oropharynx normal Neck: trachea midline, no thyromegaly normal visual inspection Respiratory: normal respiratory effort, lungs clear to auscultation, no wheeze, rales, rhonchi. Normal insp/exp effort, no accessory muscle use Cardiovascular: RRR, no murmur, +rub, trace lower ext edema (chronic per pt), +varicosities vessels: no JVD or carotid bruit Chest: normal inspection of chest Abdomen: normal bowel sounds, soft, +pain to palp in epigastrum, no hepatosplenomegaly Musculoskeletal: no cyanosis or clubbing, extremities motor strength 5/5 Skin: no rashes, warm and dry normal turgor Neurologic: PERRL, EOMI, accommodation nl, no face palsy, no dysarthria CN's II-XI intact bilaterally and moves all extremities Psychiatric: A+Ox3, euthymic affect Lymphatic: no cervical or axillary lymphadenopathy : deferred Results & Data Results & Data ([facility]) Vital Signs (Past 12 Hours) Vital Signs Temp Pulse Pulse Resp BP BP Pulse Ox 03/26/21 08:30 91 H 20 101/61 98 03/26/21 08:00 89 20 118/77 98 03/26/21 05:54 36.7 C 84 21 98/68 L 100 03/26/21 02:58 37.4 C 106 H 18 109/70 99 Diagnostic Findings Gallbladder Ultrasound 03/26/21 05:45 US gallbladder CLINICAL HISTORY: Epigastric pain. COMPARISON STUDY: CT of the abdomen and pelvis March 21, 2021. FINDINGS: The liver is mildly enlarged. Two echogenic right hepatic lobe lesions measure up to 1.2 cm. Portal triads are prominent. Intrahepatic bile ducts are prominent. Portal triads are also prominent However, the caliber of the common bile duct is normal, measuring 4 mm. There is no definite biliary ductal dilatation. There is pulsatile flow within the main portal vein. Velocities within the main hepatic artery appear increased. Trace perihepatic ascites is noted. Marked gallbladder wall thickening is noted. A few small echogenic foci adherent to the gallbladder wall is favored tiny polyps. Sonographic Brar sign was difficult to assess for in this patient given pain medication administration. There is trace pericholecystic fluid. Pancreas is unremarkable by sonography. There is no right hydronephrosis. IMPRESSION: 1. Markedly thickened, edematous gallbladder wall. However, no definite gallstones. Gallbladder wall thickening is a nonspecific finding however this degree of wall thickening is not typical for acute cholecystitis. Although within the differential, cholecystitis is considered unlikely. 2. Mild hepatomegaly. Trace perihepatic ascites. 3. Pulsatile flow within the main portal vein and apparent increased velocity within the hepatic artery. These are nonspecific findings. Cardiac etiology is within the differential. 4. A few echogenic right hepatic lobe lesions which favor hemangiomas. ACT 112: Negative or not required by law. Electronically signed by: Alejandro Yang M.D. 03/26/2021 7:23 AM Chest X-Ray 03/26/21 06:35 XR chest 1V portable CLINICAL HISTORY: Atypical chest pain. COMPARISON STUDY: Chest radiograph March 09, 2021. FINDINGS: Lung volumes are normal. There is no pneumothorax. There is a possible trace left pleural effusion. Mild left basilar opacity favors atelectasis. There is no consolidation to suggest pneumonia. There is pulmonary vascular congestion without overt pulmonary edema. Cardiac silhouette has slightly increased in size since prior exam. IMPRESSION: 1. Slight increase in size of the cardiac silhouette since prior chest radiograph. A pericardial effusion cannot be excluded. 2. Pulmonary vascular congestion. 3. Trace left pleural effusion. ACT 112: Negative or not required by law. Electronically signed by: Alejandro Yang M.D. 03/26/2021 7:26 AM Medications Administered Medication List Discontinued Medications Al Hydrox/Mg Hydrox/Simethicone (Gi Cocktail Ed Use) 1 dose PO ONE ONE Stop: 03/26/21 05:09 Last Admin: 03/26/21 05:50 Dose: 1 dose Documented by: [id number] Colchicine (Colchicine 0.6 Mg Tab) 0.6 mg PO NOW ONE Stop: 03/26/21 09:16 Last Admin: 03/26/21 09:37 Dose: 0.6 mg Documented by: [id number] Dexamethasone Sodium Phosphate (DexamethasonePf 10 Mg/Ml Vial) 6 mg IV NOW ONE Stop: 03/26/21 05:48 Last Admin: 03/26/21 06:08 Dose: 6 mg Documented by: [id number] Famotidine (Famotidine 20mg/5ml Iv Push) 20 mg IV ONE STA Stop: 03/26/21 05:09 Last Admin: 03/26/21 06:01 Dose: 20 mg Documented by: [id number] Hydromorphone HCl (Hydromorphone Inj 0.5 Mg/0.5 Ml Syr) 0.5 mg IV NOW STA Stop: 03/26/21 07:19 Last Admin: 03/26/21 07:34 Dose: 0.5 mg Documented by: [id number] Sodium Chloride (Nss 1000ml) 1,000 mls @ 999 mls/hr IV .Q1H1M STA Stop: 03/26/21 06:08 Last Infusion: 03/26/21 07:05 Dose: 0 mls/hr Documented by: [id number] Admin: 03/26/21 06:05 Dose: 999 mls/hr Documented by: [id number] Ondansetron HCl (Ondansetron Inj 2 Mg/Ml 2 Ml Vial) 4 mg IV NOW STA Stop: 03/26/21 07:19 Last Admin: 03/26/21 07:34 Dose: 4 mg Documented by: [id number] Pantoprazole Sodium (Pantoprazole 40 Mg Tab) 40 mg PO NOW STA Stop: 03/26/21 09:16 Last Admin: 03/26/21 09:36 Dose: 40 mg Documented by: [id number] Sucralfate (Sucralfate 1 Gm Tab) 1 gm PO NOW STA Stop: 03/26/21 09:16 Last Admin: 03/26/21 09:36 Dose: 1 gm Documented by: [id number] ECG Rate (beats per minute): 95 Rhythm: normal sinus COVID-19 Results Results COVID-19 Adm Lab Results: RBC 3.42 M/uL (4.2-5.4) L 03/26/21 WBC 14.00 K/uL (4.8-10.8) H 03/26/21 Hgb 9.9 g/dL (12.0-16.0) L 03/26/21 Hct 30.0 % (37-47) L 03/26/21 Plt Count 434 K/uL (130-400) H 03/26/21 Neutrophils (%) (Auto) 85.8 % 03/26/21 Lymphocytes (%) (Auto) 7.7 % 03/26/21 Monocytes # (Auto) 0.86 K/uL (0.11-0.59) H 03/26/21 Eosinophils # (Auto) 0.02 K/uL (0-0.5) 03/26/21 Immature Granulocyte % (Auto) 0.2 % 03/26/21 Neutrophils # (Auto) 12.00 K/uL (1.4-6.5) H 03/26/21 Lymphocytes # (Auto) 1.08 K/uL (1.2-3.4) L 03/26/21 Monocytes # (Auto) 0.86 K/uL (0.11-0.59) H 03/26/21 Eosinophils # (Auto) 0.02 K/uL (0-0.5) 03/26/21 Basophils # (Auto) 0.01 K/uL (0-0.2) 03/26/21 Immature Granulocyte # (Auto) 0.03 K/uL (0.00-0.02) H 03/26/21 Na 130 mmol/L (136-145) L 03/26/21 K 4.0 mmol/L (3.5-5.1) 03/26/21 Cl 95 mmol/L (98-107) L 03/26/21 CO2 26 mmol/L (21-32) 03/26/21 Anion Gap 9.0 (3-11) 03/26/21 BUN 7 mg/dl (7-18) 03/26/21 Creatinine 0.69 mg/dl (0.6-1.2) 03/26/21 BUN/Creatinine Ratio 9.8 (10-20) L 03/26/21 Glucose Level 99 mg/dl (70-99) 03/26/21 Ca 9.6 mg/dl (8.5-10.1) 03/26/21 Total Bilirubin 0.7 mg/dl (0.2-1) 03/26/21 AST/SGOT 17 U/L (15-37) 03/26/21 ALT/SGPT 45 U/L (12-78) 03/26/21 Alkaline Phosphatase 104 U/L (45-117) 03/26/21 Total Protein 7.8 gm/dl (6.4-8.2) 03/26/21 Albumin 3.1 gm/dl (3.4-5.0) L 03/26/21 Globulin 4.7 gm/dl (2.5-4.0) H 03/26/21 Albumin/Globulin Ratio 0.7 (0.9-2) L 03/26/21 LDH 151 U/L (84-246) 03/26/21 Troponin I < 0.015 ng/ml (0-0.045) 03/26/21 CRP 17.00 mg/dl (0-0.29) H 03/26/21 SARS-CoV-2, RNA, NAAT NEGATIVE (NEGATIVE) 03/26/21 Chest X-Ray 03/26/21 Code Status & VTE Plan Code Status FULL CODE VTE Prophylaxis Plan VTE Prophylaxis will be ordered: Yes Supervising Physician Co-Signing Physician Notes History and physical exam performed by me as detailed by Yamile Macias PA-C. History notable for recent hospitalization for chest and epigastric pain during which patient was found to have pericardial effusion and was started on treatment for pericarditis. Patient discharged home 3 days ago represented with similar symptoms. Exam notable for epigastric tenderness. Lab work today notable for WBC of 14, sodium of 130, CRP of 17. Chest x-ray reports slight increase in size of cardiac silhouette compared to prior, trace left pleural effusion, pulmonary vascular congestion. Gallbladder ultrasound reports markedly thickened, edematous gallbladder wall, no definitive gallstones, mild hepatomegaly with trace perihepatic ascites. Pericarditis Concern for possible autoimmune versus connective tissue disease process based on previous eval HIDA scan do not suggest cholecystitis Continue colchicine and prednisone at this time Cardiology evalutation will be appreciated May consider Rheum consult. Patient was seen by Rheum last visit and planned to follow up outpatient. However, Some autoimmune/conn tiss labs from recent admission still pending. Agree with other plans as detailed by Yamile Macias PA-C
[2021-03-26] MEDS ORDERED: SUCRALFATE 1 GM TAB PO STA ×2 (09:15→11:44)
[2021-03-26] MEDS ORDERED: PANTOprazole 40 MG TAB PO STA (09:15)
[2021-03-26] MEDS ORDERED: COLCHICINE 0.6 MG TAB PO ONE (09:15)
--- NOTE | 2021-03-26 10:33 | XCELERA ---
[id number]
[2021-03-26] MEDS ORDERED: MAGNESIUM HYDROXIDE SUSP 30 ML UDC PO PRN (11:39)
[2021-03-26] MEDS ORDERED: ONDANSETRON INJ 2 MG/ML 2 ML VIAL IV PRN (11:39)
[2021-03-26] MEDS ORDERED: ACETAMINOPHEN 325 MG TAB PO PRN (11:39)
[2021-03-26] MEDS ORDERED: ALUMINUM/MAGNESIUM SUSP 30 ML UDC PO PRN (11:39)
[2021-03-26] MEDS ORDERED: POLYETHYLENE (MIRALAX) 17 GM PACK PO PRN (11:39)
--- NOTE | 2021-03-26 13:28 | Surgery Consultation ---
Date of Consultation March 26, 2021 Assessment & Plan (1) Epigastric abdominal pain: This is a 40yF with a PMH of POONAM and recent admission for pericarditis who presents to the [facility] ED on 03/26/21 with complaints of chest and epigastric discomfort. Patient underwent a RUQ US today that revealed "a markedly thickened, edematous gallbladder wall, without gallstones. However, no definite gallstones. Gallbladder wall thickening is a nonspecific finding however this degree of wall thickening is not typical for acute cholecystitis." WBC 14. LFTs all within normal limits. On examination patient's abdomen is soft and tender to palpation in the epigastric region, cannot elicit RUQ tenderness. She is undergoing further workup for etiology of her pericarditis and cardiology is on board. We have a low suspicion her gallbladder is the cause for her pain at this time, however we will order a HIDA scan for further evaluation. We will continue to follow. Pt seen/examined with Dr. Hardy. History of Present Illness Attending Physician: Sherlyn Cortez MD History of Present Illness This is a 40yF with a PMH of POONAM and recent admission for pericarditis who presents to the [facility] ED on 03/26/21 with complaints of chest and epigastric discomfort. Surgery was consulted for evaluation of her gallbladder being the etiology of her epigastric discomfort as she underwent a RUQ US today that revealed "a markedly thickened, edematous gallbladder wall, without gallstones. However, no definite gallstones. Gallbladder wall thickening is a nonspecific finding however this degree of wall thickening is not typical for acute cholecystitis." She was recently evaluated by GI for her anemia and was started on protonix and carafate with recommendation for output EGD/Cscope. Patient reports no issues with foods (outside of milk and almonds), although she has been experiencing intermittent nausea and fullness. Her mother and grandmother both had their gallbladders out. Allergies Allergy/AdvReac Type Severity Reaction Status Date / Time Sulfa (Sulfonamide Allergy Unknown HIVES, rash Verified 03/09/21 20:50 Antibiotics) Home Medications Medication Instructions Recorded Confirmed Type valacyclovir 500 mg tablet 500 mg PO BID PRN 03/19/21 03/26/21 History colchicine 0.6 mg tablet (Colcrys) 0.6 mg PO BID 30 Days #60 tab 03/23/21 03/26/21 Rx ferrous sulfate 325 mg (65 mg 325 mg PO BIDM 30 Days #60 tab 03/23/21 03/26/21 Rx iron) tablet,delayed release ibuprofen 600 mg tablet 600 mg PO Q8H 7 Days #21 tab 03/23/21 03/26/21 Rx pantoprazole 40 mg tablet,delayed 40 mg PO BID 03/26/21 03/26/21 History release (Protonix) sucralfate 1 gram tablet 1 g PO QID 03/26/21 03/26/21 History Patient History Medical History Anemia HSV (herpes simplex virus) infection Surgical History History of colonoscopy History of wisdom tooth extraction Family History Mother Breast cancer Aunt Mitral valve disease Social History Smoking Status: Never smoker Hx Alcohol Use: Yes Alcohol type: wine Hx Substance Use: No Preferred Language: Sami Communication Ability: Effective Sweet Dough Mixer Required: No Beliefs That Will Affect Care: Samaritan Samaritan Beliefs: Sikhism. Current Living Situation: Spouse and Family Feels Safe at Home: Yes Assistive Devices: Glasses Review of Systems Constitutional: no fever Cardiovascular: + chest pain Gastrointestinal: + abdominal pain (epigastric discomfort) and + nausea Physical Exam Physical Exam: awake/alert Respiratory: normal respiratory effort Gastrointestinal (Abdomen): Inspection/Auscultation: abdomen not distended Percussion/Palpation: + abdomen tender (ttp in epigastric region. no RUQ ttp) and abdomen soft Results & Data ([facility]) Vital Signs (Past 12 Hours) Vital Signs Temp Pulse Pulse Resp BP BP Pulse Ox 03/26/21 13:00 81 20 109/70 98 03/26/21 11:00 87 18 101/67 97 03/26/21 10:59 81 18 96 03/26/21 09:30 70 20 98/61 L 97 03/26/21 08:30 91 H 20 101/61 98 03/26/21 08:00 89 20 118/77 98 03/26/21 05:54 36.7 C 84 21 98/68 L 100 03/26/21 02:58 37.4 C 106 H 18 109/[address] OF THE ABDOMEN AND PELVIS WITHOUT CONTRAST CLINICAL HISTORY: abdominal pain, possible gastric ulcer COMPARISON STUDY: MRI of the pelvis December 08, 2013. TECHNIQUE: Axial images of the abdomen and pelvis were obtained without IV contrast. Images were reviewed in the axial, sagittal, and coronal planes. Automated exposure control was utilized for the study. A dose lowering technique was utilized adhering to the principles of ALARA. FINDINGS: Visualized portions of the lower chest demonstrated a [id number] pericardial effusion. Decreased attenuation of the cardiac blood pool is noted. Small left and trace right pleural effusions are noted. Associated airspace opacities represent atelectasis. No pneumatosis, free air or portal venous gas is present. Evaluation of the abdomen and pelvis is suboptimal on this unenhanced exam. Unenhanced images of the liver, spleen, adrenal glands, kidneys and pancreas are unremarkable. There is no biliary or pancreatic ductal dilatation. There may be mild gallbladder wall thickening, a nonspecific finding. The gallbladder is not distended. There is no convincing evidence for acute cholecystitis. Stomach is suboptimally assessed by CT but no adjacent abnormality is identified. There is no evidence for a bowel obstruction. The appendix is normal. There is a 2.4 cm cyst or dominant follicle within the right ovary. A small amount of fluid within the pe lvis is noted. There is no lymphadenopathy. No acute fracture or suspicious lesion is identified within visualized skeletal structures. IMPRESSION: 1. Small to moderate pericardial effusion. Decreased attenuation of the cardiac blood flow which may indicate anemia. 2. Small left and trace right pleural effusions. 3. No pneumoperitoneum. Suboptimal evaluation of the stomach given CT technique but no adjacent abnormality. 4. Mild gallbladder wall thickening, a nonspecific finding. No gallbladder distention. No convincing evidence for acute cholecystitis. 5. Small amount of fluid within the pelvis. ACT 112: Negative or not required by law. Electronically signed by: Alejandro Yang M.D. 03/21/2021 7:32 AM US gallbladder CLINICAL HISTORY: Epigastric pain. COMPARISON STUDY: CT of the abdomen and pelvis March 21, 2021. FINDINGS: The liver is mildly enlarged. Two echogenic right hepatic lobe lesions measure up to 1.2 cm. Portal triads are prominent. Intrahepatic bile ducts are prominent. Portal triads are also prominent However, the caliber of the common bile duct is normal, measuring 4 mm. There is no definite biliary ductal dilatation. There is pulsatile flow within the main portal vein. Velocities within the main hepatic artery appear increased. Trace perihepatic ascites is noted. Marked gallbladder wall thickening is noted. A few small echogenic foci adherent to the gallbladder wall is favored tiny polyps. Sonographic Brar sign was difficult to assess for in this patient given pain medication administration. There is trace pericholecystic fluid. Pancreas is unremarkable by sonography. There is no right hydronephrosis. IMPRESSION: 1. Markedly thickened, edematous gallbladder wall. However, no definite gallstones. Gallbladder wall thickening is a nonspecific finding however this degree of wall thickening is not typical for acute cholecystitis. Although within the differential, cholecystitis is considered unlikely. 2. Mild hepatomegaly. Trace perihepatic ascites. 3. Pulsatile flow within the main portal vein and apparent increased velocity within the hepatic artery. These are nonspecific findings. Cardiac etiology is within the differential. 4. A few echogenic right hepatic lobe lesions which favor hemangiomas. ACT 112: Negative or not required by law. Electronically signed by: Alejandro Yang M.D. 03/26/2021 7:23 AM PG Care Time/CCT Total # of Minutes Spent Total Time Spent with Patient: Total time spent is greater than 50% in coordination of care (as documented) at patient's floor/unit and/or counseling patient: Coding Level of Care Code 20182 Inpt Consult Level 2 Diagnoses Epigastric abdominal pain R10.13
--- NOTE | 2021-03-26 15:45 | Nuclear Medicine Report ---
NUCLEAR MEDICINE HEPATOBILIARY SCAN HISTORY: Abnormal gallbladder. Gallbladder wall thickening. evaluation for cholecystitis COMPARISON: Abdomen and pelvis CT 03/21/2021. TECHNIQUE: Immediately following the intravenous administration of 4.5 mCi Tc-99m Choletec, dynamic a nterior abdominal imaging was performed. FINDINGS: Uniform hepatic tracer accumulation is shown. Prompt intrahepatic biliary excretion is seen. The gall bladder and common bile duct are visualized at 20 minutes. Slight delayed visualization of small william l. However, the small bowel was identified following administration of oral boost. IMPRESSION: 1. No evidence for cystic duct obstruction/acute cholecystitis. ACT 112: Negative or not required by law. Electronically signed by: Chris Hollins M.D. 03/26/2021 3:44 PM
--- NOTE | 2021-03-26 15:51 | Cardiology Progress Note ---
Date of Service March 26, 2021 Assessment & Plan (1) Pericarditis: Plan: 1. Pericarditis: Her initial presentation was consistent with pericarditis. Her symptoms, elevated inflammatory markers in presence of pericardial effusion were all consistent with this diagnosis. She seems respond to nonsteroidal medications. However, her symptoms have become progressive. She still has elevated inflammatory markers. Most patients have idiopathic pericarditis belie suha to be related to viral infections. However, there has been some concern that she suffers from a systemic inflammatory process. She was administered steroids earlier today. It would seem that continued steroid administration would be necessary to improve her symptoms and inflammation. She has a constellation of other symptoms which may represent other manifestations of the same process. She is currently prescribed 30 milligrams of prednisone daily in this seems to be an adequate dose. She will require treatment for several weeks. I will continue colchicine at 0.6 milligrams twice daily. 2. pericardial effusion: Resolved. Admission and Anticipated Discharge Date Admission Date: March 26, 2021 Subjective The patient is a 40-year-old woman Jorge Huynh admitted on March 19 over concerns of a pericardial effusion and hemodynamic compromise. However, at the time she presented to our hospital she was noted only to have a small to moderate size pericardial effusion without significant hemodynamic derangement. The patient's symptoms were consistent with pericarditis and she was treated conservatively initially with colchicine as a sole agent and eventually with colchicine and ibuprofen. At the time of discharge her symptoms had improved. However, the patient states that over the past 2 days her symptoms have worsened. She continues to have an element of upper chest discomfort with deep inspiration. This is worse with changes in position. When lying on her left side she also has some sharp pains that are fairly severe in the precordial area. The patient has developed some additional symptoms since discharge. This includes epigastric and anterior abdominal discomfort. Anorexia and abdominal discomfort with eating. She is not describe nausea. She has had some change in her bowel habits including frequent loose stools on the day of discharge and unusual color to her stools recently. She also has bilateral arm discomfort that is worse with movement of her arms. At the end of the day she also has some back discomfort. She did not describe subjective fevers or chills. Left shoulder pain is worse than the right. Review of Systems Review of Systems: Per HPI Physical Exam Physical Exam: She is alert and oriented x3. Mood affect appear normal. She answered all questions appropriately. mildly uncomfortable. HEENT: Sclerae are anicteric. Pupils are equal and reactive to light and accommodation. Extraocular movements were intact. Neuro: Cranial nerves intact Lungs: Lungs are clear to auscultation bilaterally. There are no rales wheezes or rhonchi. She has normal respiratory effort without use of accessory muscles. There is normal pulmonary excursion. Some splinting. Cardiac: The rhythm was regular. S1 and S2 were normal. There are no murmurs on examination. The PMI was not markedly displaced on palpation. Extremities: Patient has bilateral radial pulses that are equal in intensity. There is no evidence cyanosis or clubbing. There was no evidence of significant peripheral edema bilaterally. Skin: There are no rashes noted on examination today. Results & Data ([facility]) Vital Signs (Past 12 Hours) Vital Signs Temp Pulse Pulse Resp BP Pulse Ox 03/26/21 13:00 83 18 98/65 L 98 03/26/21 11:00 87 18 101/67 97 03/26/21 10:59 81 18 96 03/26/21 09:30 70 20 98/61 L 97 03/26/21 08:30 91 H 20 101/61 98 03/26/21 08:00 89 20 118/77 98 03/26/21 05:54 36.7 C 84 21 98/68 L 100 Laboratory Results Abnormal Lab Results 03/26/21 03/26/21 03/26/21 06:00 06:00 06:00 WBC 14.00 H RBC 3.42 L Hgb 9.9 L Hct 30.0 L MCV 87.7 MCH 28.9 MCHC 33.0 RDW Std Deviation 47.0 H RDW Coeff of Agustin 14.6 H Plt Count 434 H MPV 9.0 Immature Gran % (Auto) 0.2 Neut % (Auto) 85.8 Lymph % (Auto) 7.7 [place] % (Auto) 6.1 Eos % (Auto) 0.1 Baso % (Auto) 0.1 Neut # (Auto) 12.00 H Lymph # (Auto) 1.08 L [place] # (Auto) 0.86 H Eos # (Auto) 0.02 Baso # (Auto) 0.01 Immature Gran # (Auto) 0.03 H ESR Sodium 130 L Potassium 4.0 Chloride 95 L Carbon Dioxide 26 Anion Gap 9.0 BUN 7 Creatinine 0.69 Est Cr Clr Drug Dosing 106.8 Est GFR ( Amer) 124.4 Est GFR (Non-Af Amer) 107.4 BUN/Creatinine Ratio 9.8 L Glucose 99 Calcium 9.6 Total Bilirubin 0.7 AST 17 ALT 45 Alkaline Phosphatase 104 Lactate Dehydrogenase Troponin I C-Reactive Protein Total Protein 7.8 Albumin 3.1 L Globulin 4.7 H Albumin/Globulin Ratio 0.7 L Lipase 127 HCG, Qual Negative Urine Color Urine Appearance Urine pH Ur Specific [place] Urine Protein Urine Glucose (UA) Urine Ketones Urine Blood Urine Nitrite Urine Bilirubin Urine Urobilinogen Ur Leukocyte Esterase SARS-CoV-2, RNA, NAAT 03/26/21 03/26/21 03/26/21 07:20 07:33 08:25 WBC RBC Hgb Hct MCV MCH MCHC RDW Std Deviation RDW Coeff of Agustin Plt Count MPV Immature Gran % (Auto) Neut % (Auto) Lymph % (Auto) [place] % (Auto) Eos % (Auto) Baso % (Auto) Neut # (Auto) Lymph # (Auto) [place] # (Auto) Eos # (Auto) Baso # (Auto) Immature Gran # (Auto) ESR Sodium Potassium Chloride Carbon Dioxide Anion Gap BUN Creatinine Est Cr Clr Drug Dosing Est GFR ( Amer) Est GFR (Non-Af Amer) BUN/Creatinine Ratio Glucose Calcium Total Bilirubin AST ALT Alkaline Phosphatase Lactate Dehydrogenase 151 Troponin I C-Reactive Protein Total Protein Albumin Globulin Albumin/Globulin Ratio Lipase HCG, Qual Urine Color Yellow Urine Appearance Clear Urine pH 5.5 Ur Specific [place] 1.006 Urine Protein Negative Urine Glucose (UA) Negative Urine Ketones 1+ H Urine Blood Negative Urine Nitrite Negative Urine Bilirubin Negative Urine Urobilinogen Negative Ur Leukocyte Esterase Negative SARS-CoV-2, RNA, NAAT NEGATIVE 03/26/21 03/26/21 03/26/21 08:26 08:26 08:26 WBC RBC Hgb Hct MCV MCH MCHC RDW Std Deviation RDW Coeff of Agustin Plt Count MPV Immature Gran % (Auto) Neut % (Auto) Lymph % (Auto) [place] % (Auto) Eos % (Auto) Baso % (Auto) Neut # (Auto) Lymph # (Auto) [place] # (Auto) Eos # (Auto) Baso # (Auto) Immature Gran # (Auto) ESR 80 H Sodium Potassium Chloride Carbon Dioxide Anion Gap BUN Creatinine Est Cr Clr Drug Dosing Est GFR ( Amer) Est GFR (Non-Af Amer) BUN/Creatinine Ratio Glucose Calcium Total Bilirubin AST ALT Alkaline Phosphatase Lactate Dehydrogenase Troponin I < 0.015 C-Reactive Protein 17.00 H Total Protein Albumin Globulin Albumin/Globulin Ratio Lipase HCG, Qual Urine Color Urine Appearance Urine pH Ur Specific [place] Urine Protein Urine Glucose (UA) Urine Ketones Urine Blood Urine Nitrite Urine Bilirubin Urine Urobilinogen Ur Leukocyte Esterase SARS-CoV-2, RNA, NAAT Diagnostic Findings Echocardiogram performed today revealed preserved LV systolic function without pericardial effusion. PG Care Time/CCT Total # of Minutes Spent Total Time Spent with Patient: Total time spent is greater than 50% in coordination of care (as documented) at patient's floor/unit and/or counseling patient: Coding Level of Care Code 83091 Subseq Hosp Care Lvl 3 Diagnoses Pericarditis I31.9
[2021-03-26] MEDS: SUCRALFATE 1 GM TAB PO SCH ×2 (18:40→19:59)
[2021-03-26] MEDS: FERROUS SULFATE 325 MG TAB PO SCH (18:40)
[2021-03-26] MEDS: PANTOprazole 40 MG TAB PO SCH (19:59)
[2021-03-26] MEDS: COLCHICINE 0.6 MG TAB PO SCH (19:59)
[2021-03-27] MEDS: PANTOprazole 40 MG TAB PO SCH (07:38)
[2021-03-27] MEDS: COLCHICINE 0.6 MG TAB PO SCH (07:38)
[2021-03-27] MEDS: FERROUS SULFATE 325 MG TAB PO SCH ×2 (07:38→16:39)
[2021-03-27] MEDS: SUCRALFATE 1 GM TAB PO SCH ×3 (07:38→16:39)
[2021-03-27 07:43] LABS: Hematocrit (blood only) 27.3 % (37-47); Hemoglobin 8.9 g/dL (12.0-16.0); Mean Corpuscular Hemoglobin 28.5 pg (25-34); Mean Corpuscular Hgb Conc 32.6 g/dL (32-36); Mean Corpuscular Volume 87.5 fL (80-100); Platelet Count 364 K/uL (130-400); RDW Coefficient of Variation 14.5 % (11.5-14.5); RDW Standard Deviation 46.4 fL (36.4-46.3); Red Blood Count 3.12 M/uL (4.2-5.4); White Blood Count 12.67 K/uL (4.8-10.8)
[2021-03-27 08:07] LABS: BUN Creatinine Ratio 15.5 (10-20); Calcium 8.7 mg/dl (8.5-10.1); Creatinine Clr Calc Pharmacy 117.3 ml/min; Est GFR (African American) 124.4 ml/min; Est GFR (Non-African American) 107.4 ml/min; Potassium 3.7 mmol/L (3.5-5.1)
[2021-03-27] MEDS ORDERED: predniSONE 10 MG TABLET PO SCH (09:00)
--- NOTE | 2021-03-27 12:33 | Surgery Progress Note ---
Date of Service March 27, 2021 Assessment & Plan (1) Epigastric abdominal pain: Plan: Patient with less epigastric pain today HIDA scan was performed and revealed no evidence of cholecystitis She is tolerating a regular diet thus far No plans for surgical intervention, will sign off. please call with any questions/concerns Admission and Anticipated Discharge Date Admission Date: March 26, 2021 Subjective Patient is feeling better. She felt some twinges of pain yesterday while eating but nothing today. She has been tolerating a regular diet thus far today. She had some loose stools this AM. Physical Exam Physical Exam: awake/alert, sitting up in chair Gastrointestinal (Abdomen): Inspection/Auscultation: abdomen not distended Percussion/Palpation: + abdomen tender (epigastric (less), no RUQ ttp) and abdomen soft Results & Data ([facility]) Vital Signs (Past 12 Hours) Vital Signs Temp Pulse Pulse Resp BP Pulse Ox 03/27/21 11:10 36.8 C 85 17 102/69 96 03/27/21 08:00 87 03/27/21 07:30 36.4 C L 54 L 16 108/71 98 03/27/21 02:46 37.1 C 68 17 103/66 98 PG Care Time/CCT Total # of Minutes Spent Total Time Spent with Patient: Total time spent is greater than 50% in coordination of care (as documented) at patient's floor/unit and/or counseling patient: Coding Level of Care Code 37777 Subseq Hosp Care Lvl 1 Diagnoses Epigastric abdominal pain R10.13
--- NOTE | 2021-03-27 13:47 | Discharge Summary ---
Date of Service March 27, 2021 Admission HPI Per Admitting Provider This is a 40-year-old female who has significant past medical history of iron deficiency anemia and pericarditis who presents to ED secondary to chest pain and epigastric pain x3 days since discharge. Of significance patient was recently hospitalized 03/19 through 03/23 secondary to similar symptoms. During this hospital admission patient was diagnosed with acute pericarditis. Echocardiogram on 03/20 revealed EF 55 to 60% with a small pericardial effusion. She was initiated on colchicine 0.6 mg twice daily and ibuprofen 600 mg 3 times daily. She was seen and evaluated by rheumatology as it was felt this may be secondary to a rheumatologic or autoimmune process. Her rheumatoid factor titer was elevated however JOVAN negative x3. Serologic rheumatoid panel continues to be pending. On day of discharge her chest pain had improved and she was discharged to home. Hospitalization was complicated by iron deficiency anemia. She did receive iron infusions and was discharged home on ferrous sulfate twice a day. She was seen and evaluated by GI who recommended oral Protonix and Carafate therapy, but felt no acute intervention needed. They recommended referral to outpatient hematology as well as outpatient endoscopy if symptoms continued. When patient returned home she continued to have precordial chest discomfort and epigastric pain. It gradually worsened over the past 3 days. Overnight her pain became extremely severe, 8 out of 10, unable to lie flat and she returned to the ER. Her pain this morning was mostly in the epigastrium with radiation to the left upper quadrant, precordium and left shoulder. She feels a fullness in her epigastrium and mild nausea but denies vomiting. She does complain of chills and sweats but denies documented fever. She further denies lightheadedness, dizziness, headache, recent illness or recent URI symptoms, shortness breath at rest, hemoptysis, melena, medic easier or change in urination. She does have shortness of breath and chest pain with exertion. She feels difficulty taking a deep breath due to inspiratory chest pain. She does complain of dry cough. Pain significantly worsens when lying on left side. In ED she remained hemodynamically stable. Her WBC was elevated at 14 K, H&H low at 9.9 and 30.0, ESR 80, CRP 17, sodium 130, chloride 95 and urinalysis negative.Chest x-ray revealed slight increase in size of cardiac silhouette sin ce prior chest radiograph no pericardial effusion cannot be excluded, pulmonary vascular congestion and trace pleural effusion noted. No overt pulmonary edema. Gallbladder ultrasound was ordered which revealed markedly thickened, edematous gallbladder wall. However no definitive gallstones. Gallbladder wall thickening nonspecific finding however this degree of wall thickening is not typical for acute cholecystitis. Mild hepatomegaly and trace perihepatic ascites noted. In ED she did receive IV dexamethasone, IV famotidine and Maalox and symptoms are currently a 2 out of 10. Admission Exam Per Admitting Provider Constitutional: WD/WN, pale, F, appears acutely ill, vitals as above, NAD, sitting up in bed, pleasant, conversing easily Head: Normocephalic, Atraumatic Eyes: PERRL, conjunctivae normal, anicteric sclerae ENMT: external ear and nose normal, oropharynx normal Neck: trachea midline, no thyromegaly normal visual inspection Respiratory: normal respiratory effort, lungs clear to auscultation, no wheeze, rales, rhonchi. Normal insp/exp effort, no accessory muscle use Cardiovascular: RRR, no murmur, +rub, trace lower ext edema (chronic per pt), +varicosities vessels: no JVD or carotid bruit Chest: normal inspection of chest Abdomen: normal bowel sounds, soft, +pain to palp in epigastrum, no hepatosplenomegaly Musculoskeletal: no cyanosis or clubbing, extremities motor strength 5/5 Skin: no rashes, warm and dry normal turgor Neurologic: PERRL, EOMI, accommodation nl, no face palsy, no dysarthria CN's II-XI intact bilaterally and moves all extremities Psychiatric: A+Ox3, euthymic affect Lymphatic: no cervical or axillary lymphadenopathy : deferred Principal Diagnosis Acute pericarditis pericardial effusion-resolved epigastric abdominal pain-resolved Rheumatoid factor positive Discharge Exam CONSTITUTIONAL: WNWD, vitals as above, generally well-appearing EYES: EOMI bilaterally, PERRL, normal conjuctivae, no scleral icterus, no fundoscopic abnormality ENT: external ear and nose normal, oropharynx clear, no TM abnormality, no maxillary or ethmoid sinus tenderness NECK: trachea midline, no lymphadenopathy, normal thyroid RESPIRATORY: clear to auscultation bilaterally, no crackles, rales or wheezes, normal respiratory effort CARDIOVASCULAR: regular rate and rhythm, S1 and 2 heard without murmurs, gallops or rubs, no JVD, no peripheral edema, no carotid bruits CHEST: inspection of chest was normal (+pacemaker, +port) GASTROINTESTINAL: normal bowel sounds, soft, nontender, no hepatomegaly, no guarding MUSCULOSKELETAL: strength 5/5 throughout, head is normocephalic and atraumatic, neck supple, normal palpation of chest wall without tenderness SKIN: warm and dry, no rashes NEUROLOGIC: patellar DTRs 2+ bilat. PERRL, EOMI, no facial palsy, no dysarth gloria. Touch, pain and proprioception normal. CN 2-12 grossly intact, no sensory deficit, normal cognition, normal speech, no tremor PSYCHIATRIC: alert cooperative and oriented to person, place and time. Euthymic mood, makes good eye contact, language grossly intact, recent and remote memory grossly intact. LYMPHATIC: no LAD Discharge Data Allergies Allergy/AdvReac Type Severity Reaction Status Date / Time Sulfa (Sulfonamide Allergy Unknown HIVES, rash Verified 03/09/21 20:50 Antibiotics) Consultations 03/26/21 08:07 ED Decision to Admit Stat 03/26/21 08:17 Consult Cardiology Routine 03/26/21 10:26 Consult General Surgery Routine Ordered Studies Laboratory Results WBC 12.67 K/uL (4.8-10.8) H 03/27/21 07:06 RBC 3.12 M/uL (4.2-5.4) L 03/27/21 07:06 Hgb 8.9 g/dL (12.0-16.0) L 03/27/21 07:06 Hct 27.3 % (37-47) L 03/27/21 07:06 MCV 87.5 fL (80-100) 03/27/21 07:06 MCH 28.5 pg (25-34) 03/27/21 07:06 MCHC 32.6 g/dL (32-36) 03/27/21 07:06 RDW Std Deviation 46.4 fL (36.4-46.3) H 03/27/21 07:06 RDW Coeff of Agustin 14.5 % (11.5-14.5) 03/27/21 07:06 Plt Count 364 K/uL (130-400) 03/27/21 07:06 MPV 9.0 fL (7.4-10.4) 03/27/21 07:06 Immature Gran % (Auto) 0.2 % 03/26/21 06:00 Neut % (Auto) 85.8 % 03/26/21 06:00 Lymph % (Auto) 7.7 % 03/26/21 06:00 [place] % (Auto) 6.1 % 03/26/21 06:00 Eos % (Auto) 0.1 % 03/26/21 06:00 Baso % (Auto) 0.1 % 03/26/21 06:00 Neut # (Auto) 12.00 K/uL (1.4-6.5) H 03/26/21 06:00 Lymph # (Auto) 1.08 K/uL (1.2-3.4) L 03/26/21 06:00 [place] # (Auto) 0.86 K/uL (0.11-0.59) H 03/26/21 06:00 Eos # (Auto) 0.02 K/uL (0-0.5) 03/26/21 06:00 Baso # (Auto) 0.01 K/uL (0-0.2) 03/26/21 06:00 Immature Gran # (Auto) 0.03 K/uL (0.00-0.02) H 03/26/21 06:00 ESR 80 mm/hr (0-20) H 03/26/21 08:26 Sodium 135 mmol/L (136-145) L 03/27/21 07:06 Potassium 3.7 mmol/L (3.5-5.1) 03/27/21 07:06 Chloride 103 mmol/L (98-107) 03/27/21 07:06 Carbon Dioxide 27 mmol/L (21-32) 03/27/21 07:06 Anion Gap 6.0 (3-11) 03/27/21 07:06 BUN 11 mg/dl (7-18) D 03/27/21 07:06 Creatinine 0.69 mg/dl (0.6-1.2) 03/27/21 07:06 Est Cr Clr Drug Dosing 117.3 ml/min 03/27/21 07:06 Est GFR ( Amer) 124.4 ml/min 03/27/21 07:06 Est GFR (Non-Af Amer) 107.4 ml/min 03/27/21 07:06 BUN/Creatinine Ratio 15.5 (10-20) 03/27/21 07:06 Glucose 90 mg/dl (70-99) 03/27/21 07:06 Calcium 8.7 mg/dl (8.5-10.1) 03/27/21 07:06 Total Bilirubin 0.7 mg/dl (0.2-1) 03/26/21 06:00 AST 17 U/L (15-37) 03/26/21 06:00 ALT 45 U/L (12-78) 03/26/21 06:00 Alkaline Phosphatase 104 U/L (45-117) 03/26/21 06:00 Lactate Dehydrogenase 151 U/L (84-246) 03/26/21 07:33 Troponin I < 0.015 ng/ml (0-0.045) 03/26/21 15:50 C-Reactive Protein 17.00 mg/dl (0-0.29) H 03/26/21 08:26 Total Protein 7.8 gm/dl (6.4-8.2) 03/26/21 06:00 Albumin 3.1 gm/dl (3.4-5.0) L 03/26/21 06:00 Globulin 4.7 gm/dl (2.5-4.0) H 03/26/21 06:00 Albumin/Globulin Ratio 0.7 (0.9-2) L 03/26/21 06:00 Lipase 127 U/L (73-393) 03/26/21 06:00 HCG, Qual Negative (Negative) 03/26/21 06:00 Urine Color Yellow 03/26/21 07:20 Urine Appearance Clear (Clear) 03/26/21 07:20 Urine pH 5.5 (4.5-7.5) 03/26/21 07:20 Ur Specific [place] 1.006 (1.000-1.030) 03/26/21 07:20 Urine Protein Negative (Negative) 03/26/21 07:20 Urine Glucose (UA) Negative (Negative) 03/26/21 07:20 Urine Ketones 1+ (Negative) H 03/26/21 07:20 Urine Blood Negative (Negative) 03/26/21 07:20 Urine Nitrite Negative (Negative) 03/26/21 07:20 Urine Bilirubin Negative (Negative) 03/26/21 07:20 Urine Urobilinogen Negative (Negative) 03/26/21 07:20 Ur Leukocyte Esterase Negative (Negative) 03/26/21 07:20 SARS-CoV-2, RNA, NAAT NEGATIVE (NEGATIVE) 03/26/21 08:25 Impressions Gallbladder Ultrasound 03/26/21 05:45 US gallbladder CLINICAL HISTORY: Epigastric pain. COMPARISON STUDY: CT of the abdomen and pelvis March 21, 2021. FINDINGS: The liver is mildly enlarged. Two echogenic right hepatic lobe lesions measure up to 1.2 cm. Portal triads are prominent. Intrahepatic bile ducts are prominent. Portal triads are also prominent However, the caliber of the common bile duct is normal, measuring 4 mm. There is no definite biliary ductal dilatation. There is pulsatile flow within the main portal vein. Velocities within the main hepatic artery appear increased. Trace perihepatic ascites is noted. Marked gallbladder wall thickening is noted. A few small echogenic foci adherent to the gallbladder wall is favored tiny polyps. Sonographic Brar sign was difficult to assess for in this patient given pain medication administration. There is trace pericholecystic fluid. Pancreas is unremarkable by sonography. There is no right hydronephrosis. IMPRESSION: 1. Markedly thickened, edematous gallbladder wall. However, no definite gallstones. Gallbladder wall thickening is a nonspecific finding however this degree of wall thickening is not typical for acute cholecystitis. Although within the differential, cholecystitis is considered unlikely. 2. Mild hepatomegaly. Trace perihepatic ascites. 3. Pulsatile flow within the main portal vein and apparent increased velocity within the hepatic artery. These are nonspecific findings. Cardiac etiology is within the differential. 4. A few echogenic right hepatic lobe lesions which favor hemangiomas. ACT 112: Negative or not required by law. Electronically signed by: Alejandro Yang M.D. 03/26/2021 7:23 AM Chest X-Ray 03/26/21 06:35 XR chest 1V portable CLINICAL HISTORY: Atypical chest pain. COMPARISON STUDY: Chest radiograph March 09, 2021. FINDINGS: Lung volumes are normal. There is no pneumothorax. There is a possible trace left pleural effusion. Mild left basilar opacity favors atelectasis. There is no consolidation to suggest pneumonia. There is pulmonary vascular congestion without overt pulmonary edema. Cardiac silhouette has slightly increased in size since prior exam. IMPRESSION: 1. Slight increase in size of the cardiac silhouette since prior chest radiograph. A pericardial effusion cannot be excluded. 2. Pulmonary vascular congestion. 3. Trace left pleural effusion. ACT 112: Negative or not required by law. Electronically signed by: Alejandro Yang M.D. 03/26/2021 7:26 AM Hepatobiliary Scan Nuclear Medicine 03/26/21 13:39 NUCLEAR MEDICINE HEPATOBILIARY SCAN HISTORY: Abnormal gallbladder. Gallbladder wall thickening. evaluation for cho lecystitis COMPARISON: Abdomen and pelvis CT 03/21/2021. TECHNIQUE: Immediately following the intravenous administration of 4.5 mCi Tc- 99m Choletec, dynamic anterior abdominal imaging was performed. FINDINGS: Uniform hepatic tracer accumulation is shown. Prompt intrahepatic biliary excretion is seen. The gallbladder and common bile duct are visualized at 20 minutes. Slight delayed visualization of small bowel. However, the small bowel was identified following administration of oral boost. IMPRESSION: 1. No evidence for cystic duct obstruction/acute cholecystitis. ACT 112: Negative or not required by law. Electronically signed by: Chris Hollins M.D. 03/26/2021 3:44 PM Hospital Course (1) Pericarditis: (2) Pericardial effusion: (3) Rheumatoid factor positive: (4) Epigastric abdominal pain: (5) Anemia: 40-year-old female with a history of flares of chest pain over a number of years presented with epigastric pain x 3 days. She was recently admitted to the hospital and diagnosed with acute pericarditis with small pericardial effusion seen and no evidence of tamponade etiology, felt possibly secondary to autoimmune process. She was discharged on ibuprofen and colchicine. In the ER she was noted to be in discomfort and was medicated with IV dexamethasone and IV Zofran. She also received IV Pepcid. Ibuprofen was stopped as her epigastric pain may have been 2/2 NSAID use. Lab work revealed a mild leukocytosis of 14 with a neutrophil predominance without infection present. CRP was 17 and ESR was 80. Chest x-ray revealed cardiomegaly. Ultrasound of the gallbladder was performed and revealed marked gallbladder wall thickening with edema. She was admitted to the hospitalist service for further work-up and treatment. Surgery was consulted to evaluate her gallbladder further and a right upper quadrant ultrasound was performed revealing markedly thickened edematous wall gallbladder wall without gallstones. Her abdomen was soft and nontender to palpation in the right upper quadrant. There was low suspicion for her gallbladder as the cause of her pain however a HIDA scan was ordered for further evaluation which was negative for evidence of acute cholecystitis. Cardiology performed an echocardiogram revealing no evidence of pericardial effusion. Ejection fraction was 60-65% and no left ventricular wall motion abnormality was noted. Per cardiology her initial presentation was consistent with pericarditis in her symptoms, elevated inflammatory markers in the presence of pericardial effusion were all consistent with this diagnosis. Although she seemed to respond to nonsteroidal medications her symptoms became progressive leading to this readmission. Etiology was concerning for idiopathic pericarditis related to a viral infection which the patient does not remember having, versus a systemic inflammatory response possibly of autoimmune origin. She is awaiting outpatient work-up by rheumatology mid March. After receiving steroids her pain resolved and she was improved. She does note some loose stools with colchicine at the current dose. This will be decreased to once daily. At time of discharge she was oxygenating well on room air and hemodynamically stable. She was ambulating at baseline and mentating clearly and discharged in stable condition with close primary care follow-up recommended. Cardiology follow-up is also recommended to ensure she is continuing to do well on the treatment. Total Time Total Time Spent Total Time Spent (In Minutes): 60 Discharge Plan Discharge Items Patient Disposition: Home - Self-Care Reason For Visit: CHEST PAIN, KNOWN PERICARDITIS Discharge Diagnosis: Acute pericarditis pericardial effusion-resolved epigastric abdominal pain-resolved Rheumatoid factor positive Condition on Discharge: Good Activity: Resume your previous activity Non-emergency contact: Primary Care Provider Call non-emergency contact if: you have any medication questions, your symptoms worsen, your pain is not controlled, your pain is worsening and your pain is unusual for you Follow-up/Referrals: Sheila Swan PA-C [Primary Care Provider] - Diet: Regular Addtl Attending Provider Instructions: Please follow-up with your primary care provider within one week of hospital discharge to ensure you are doing well and your diarrhea has resolved on the reduced colchicine dose. Please reduce your colchicine dose to 0.6mg by mouth once daily to see if this helps with loose stools. Please continue prednisone once daily at the current dose of 30mg. This should be tapered after 2-4 weeks time, which can be done by rheumatology, cardiology or your primary care physician. Taper will be based on symptom response, and overall, your course of treatment will be around 3 months total. It was a pleasure taking care of you! Please call if you have any questions or problems. You can reach a [facility] hospitalist on duty at [facility] 24 hours a day by calling [phone]. Take care of yourself. Meaghan Pino, DO [facility] Hospitalist Pending Studies at Discharge: No Stand-Alone Forms: My [facility] Medications and DC Order Prescriptions: New prednisone 10 mg Tablet 30 mg PO DAILY Qty: 42 RF: 1 Continued valacyclovir 500 mg Tablet 500 mg PO BID PRN (Reason: HSV OUTBREAK) RF: 0 ferrous sulfate 325 mg (65 mg iron) Tablet,Delayed Release (Dr/Ec) 325 mg PO BIDM 30 Days Qty: 60 RF: 2 ibuprofen 600 mg Tablet 600 mg PO Q8H 7 Days Qty: 21 RF: 0 sucralfate 1 gram tablet 1 g PO QID RF: 0 pantoprazole [Protonix] 40 mg tablet,delayed release (DR/EC) 40 mg PO BID RF: 0 Changed colchicine [Colcrys] 0.6 mg Tablet 0.6 mg PO DAILY Qty: 30 RF: 2 Discharge Orders: Discharge Order (Routine); Ordered 03/27/21 Ordered By: Meaghan Pino Admission Data Admit Date/Time: 03/26/21 08:17 Attending Provider: Meaghan Pino Admit Provider: Sherlyn Cortez I. Primary Care Provider: Sheila Swan Other Providers: Sherlyn Cortez I. ; Francisco Hardy ; Manuel Martínez
--- NOTE | 2021-03-27 14:09 | Electrocardiogram Report ---
Test Reason : Blood Pressure : / mmHG Vent. Rate : 070 BPM Atrial Rate : 070 BPM P-R Int : 130 ms QRS Dur : 100 ms QT Int : 428 ms P-R-T Axes : 063 087 031 degrees QTc Int : 462 ms Normal sinus rhythm Nonspecific ST abnormality Prolonged QT Abnormal ECG When compared with ECG of 26-MAR-2021 08:19, (unconfirmed) Inverted T waves have replaced nonspecific T wave abnormality in Anterior leads Nonspecific T wave abnormality no longer evident in Lateral leads Confirmed by Suresh Martínez ([id number]) on 03/27/2021 2:08:37 PM Referred By: REFERRED SELF Confirmed By:Jonathon Martínez
--- NOTE | 2021-03-27 14:24 | Electrocardiogram Report ---
Test Reason : Blood Pressure : / mmHG Vent. Rate : 095 BPM Atrial Rate : 095 BPM P-R Int : 140 ms QRS Dur : 088 ms QT Int : 366 ms P-R-T Axes : 061 084 020 degrees QTc Int : 459 ms Normal sinus rhythm Nonspecific T wave abnormality Abnormal ECG When compared with ECG of 20-MAR-2021 08:42, No significant change was found Confirmed by Suresh Martínez ([id number]) on 03/27/2021 2:24:03 PM Referred By: REFERRED SELF Confirmed By:Jonathon Martínez
--- NOTE | 2021-03-27 16:19 | Cardiology Progress Note ---
Date of Service March 27, 2021 Assessment & Plan (1) Pericarditis: Plan: 1. Pericarditis: Much improved on steroids. A daily dose of prednisone 30 mg would be a reasonable start. We will need to taper this over several weeks. There was some concern about continued GI symptoms on b.i.d. dosing of colchicine. I think single daily dosing would be reasonable for the time being. However, I would continue colchicine at some dose. She does not require ibuprofen in addition. 2. pericardial effusion: Resolved. Admission and Anticipated Discharge Date Admission Date: March 26, 2021 Subjective Patient reports feeling much better this morning. Still a very small amount upper chest discomfort with very deep inspiration. Abdominal complaints also improved. Appetite improved. Tolerating breakfast. Review of Systems Review of Systems: Per HPI Physical Exam Physical Exam: She is alert and oriented x3. Mood affect appear normal. She answered all questions appropriately. Comfortable HEENT: Sclerae are anicteric. Pupils are equal and reactive to light and accommodation. Extraocular movements were intact. Neuro: Cranial nerves intact Lungs: Lungs are clear to auscultation bilaterally. There are no rales wheezes or rhonchi. She has normal respiratory effort without use of accessory muscles. There is normal pulmonary excursion. Some splinting. Cardiac: The rhythm was regular. S1 and S2 were normal. There are no murmurs on examination. The PMI was not markedly displaced on palpation. Extremities: Patient has bilateral radial pulses that are equal in intensity. There is no evidence cyanosis or clubbing. There was no evidence of significant peripheral edema bilaterally. Skin: There are no rashes noted on examination today. Results & Data ([facility]) Vital Signs (Past 12 Hours) Vital Signs Temp Pulse Pulse Resp BP Pulse Ox 03/27/21 14:50 37.1 C 70 12 100/64 93 03/27/21 14:35 36.8 C 85 17 102/69 96 03/27/21 11:10 36.8 C 85 17 102/69 96 03/27/21 08:00 87 03/27/21 07:30 36.4 C L 54 L 16 108/71 98 Laboratory Results Abnormal Lab Results 03/26/21 03/27/21 03/27/21 15:50 07:06 07:06 WBC 12.67 H RBC 3.12 L Hgb 8.9 L Hct 27.3 L MCV 87.5 MCH 28.5 MCHC 32.6 RDW Std Deviation 46.4 H RDW Coeff of Agustin 14.5 Plt Count 364 MPV 9.0 Sodium 135 L Potassium 3.7 Chloride 103 Carbon Dioxide 27 Anion Gap 6.0 BUN 11 D Creatinine 0.69 Est Cr Clr Drug Dosing 117.3 Est GFR ( Amer) 124.4 Est GFR (Non-Af Amer) 107.4 BUN/Creatinine Ratio 15.5 Glucose 90 Calcium 8.7 Troponin I < 0.015 Diagnostic Findings Echocardiogram performed yesterday did not reveal any pericardial effusion. PG Care Time/CCT Total # of Minutes Spent Total Time Spent with Patient: Total time spent is greater than 50% in coordination of care (as documented) at patient's floor/unit and/or counseling patient: Coding Level of Care Code 36525 Subseq Hosp Care Lvl 2 Diagnoses Pericarditis I31.9
== END 2021-03-27 17:09 | disposition home or self-care (01) ==
LOC: EDINP 02:53 → ED 02:53 → SUATTDRO 08:17 → 2S 16:41